=== PATIENT | male | born 1960 | race Caucasian/White ===

== ENCOUNTER 2019-02-27 21:37 | Inpatient (IN) | payer BC ==
[2019-02-27] MEDS ORDERED: Sodium Chloride 0.9% 10 ML Syringe FLUSH PRN (22:10)
[2019-02-27] MEDS ORDERED: Sodium Chloride 0.9% 1,000 ML IV STA (22:10)
[2019-02-27] MEDS ORDERED: Ondansetron 4 MG/2 ML SDV IVPUSH ONE (22:10)
[2019-02-27] MEDS ORDERED: HYDROmorphone 0.5 MG/0.5 ML Syringe IVPUSH ONE (22:11)
[2019-02-27] MEDS ORDERED: Diatrizoate Meglumine/Diatrizoate Sodium 37% 120 ML Bottle PO ONE ×2 (22:57→23:58)
[2019-02-27] MEDS ORDERED: Iopamidol 612 MG/ML 100 ML Bottle IVPUSH ONE ×2 (22:57→23:58)
--- NOTE | 2019-02-27 23:21 | EDM.PDOC ---
ED HPI GENERAL MEDICAL PROBLEM - General Chief Complaint: Abdominal Pain Stated Complaint: ABDOMINAL PAIN Time Seen by Provider: 02/27/19 21:55 Source of Information: Reports: Patient History Limitations: Reports: No Limitations - History of Present Illness INITIAL COMMENTS - FREE TEXT/NARRATIVE: The patient presents with lower abdominal pain. This started yesterday. Today it got worse and he came to be seen. He has no nausea, vomiting or diarrhea with it. He has no fever, chills, cough, congestion, runny nose, chest pain or shortness of breath. He had an appendectomy years ago. He still has his gallbladder. He did not eat any bad food and he was not around anyone who was sick. Onset: Gradual Duration: Day(s): Location: Reports: Abdomen Quality: Reports: Sharp Severity: Moderate Improves with: Reports: None Worsens with: Reports: None Associated Symptoms: Denies: Chest Pain, Cough, Fever/Chills, Headaches, Nausea/ Vomiting, Shortness of Breath Lower Abdomen Pain Score (Numeric/FACES): 7 - Related Data Allergies Allergy/AdvReac Type Severity Reaction Status Date / Time No Known Allergies Allergy Verified 02/27/19 21:52 Past Medical History HEENT History: Reports: Impaired Vision Other HEENT History: wears glasses Cardiovascular History: Reports: Afib Genitourinary History: Reports: Prostate Disorder Neurological History: Reports: Headaches, Chronic Oncologic (Cancer) History: Reports: Prostate - Past Surgical History HEENT Surgical History: Reports: Tonsillectomy GI Surgical History: Reports: Appendectomy Male Surgical History: Reports: Prostatectomy Social & Family History - Tobacco Use Smoking Status *Q: Never Smoker - Caffeine Use Caffeine Use: Reports: None - Recreational Drug Use Recreational Drug Use: No ED ROS GENERAL - Review of Systems Review Of Systems: See Below Constitutional: Reports: No Symptoms HEENT: Reports: No Symptoms Respiratory: Reports: No Symptoms Cardiovascular: Reports: No Symptoms Endocrine: Reports: No Symptoms GI/Abdominal: Reports: Abdominal Pain. Denies: Diarrhea, Nausea, Vomiting : Reports: No Symptoms Musculoskeletal: Reports: No Symptoms ED EXAM, GI/ABD - Physical Exam Exam: See Below Exam Limited By: No Limitations General Appearance: Alert, No Apparent Distress Ears: Normal External Exam Nose: Normal Inspection Head: Atraumatic, Normocephalic Neck: Normal Inspection Respiratory/Chest: No Respiratory Distress, Lungs Clear, Normal Breath Sounds Cardiovascular: Regular Rate, Rhythm, No Edema, No Murmur GI/Abdominal Exam: Soft, No Organomegaly, No Mass, Tender (Moderate pain to the mid abdomen) Back Exam: Normal Inspection Extremities: Normal Inspection Course - Vital Signs Last Recorded V/S: Last Vital Signs Temp 99.6 F 02/27/19 21:48 Pulse 60 02/27/19 21:48 Resp 20 02/27/19 21:48 BP 138/75 02/27/19 21:48 Pulse Ox 95 02/27/19 21:48 - Orders/Labs/Meds Orders: Active Orders 24 hr Category Date Time Status Peripheral IV Care [RC] . DIRECTED Care 02/27/19 22:11 Active Abdomen Pelvis w Cont [CT] Stat Exams 02/27/19 22:10 Taken Sodium Chloride 0.9% [Saline Flush] Med 02/27/19 22:10 Active 10 ml FLUSH ASDIRECTED PRN cefTRIAXone [Rocephin] 1 gm Med 02/28/19 00:39 Active Sodium Chloride 0.9% [Normal Saline] 100 ml IV ONETIME metroNIDAZOLE/Normal Saline [Flagyl 500 MG in NS 100 ML Med 02/28/19 00:39 Active ] 500 mg Premix Bag 1 bag IV ONETIME ED Antiemetic Medication Reflex [OM.PC] Stat Oth 02/27/19 22:10 Ordered Peripheral IV Insertion Adult [OM.PC] Stat Oth 02/27/19 22:10 Ordered Medication Orders Ceftriaxone Sodium 1 gm/ (Sodium Chloride) 100 mls @ 200 mls/hr IV ONETIME ONE Stop: 02/28/19 01:08 Last Admin: 02/28/19 00:47 Dose: 200 mls/hr Metronidazole 500 mg/ Premix 100 mls @ 100 mls/hr IV ONETIME ONE Stop: 02/28/19 01:38 Last Admin: 02/28/19 00:48 Dose: 100 mls/hr Sodium Chloride (Saline Flush) 10 ml FLUSH ASDIRECTED PRN PRN Reason: Keep Vein Open Last Admin: 02/27/19 22:23 Dose: 10 ml Labs: Laboratory Tests 02/27/19 02/27/19 02/27/19 Range/Units 22:19 22:19 23:48 WBC 10.40 H (4.23-9.07) K/mm3 RBC 4.75 (4.63-6.08) M/mm3 Hgb 14.9 (13.7-17.5) gm/dl Hct 45.1 (40.1-51.0) % MCV 94.9 H (79.0-92.2) fl MCH 31.4 (25.7-32.2) pg MCHC 33.0 (32.2-35.5) g/dl RDW Std Deviation 45.2 H (35.1-43.9) fL Plt Count 171 (163-337) K/mm3 MPV 10.3 (9.4-12.3) fl Neut % (Auto) 87.9 H (34.0-67.9) % Lymph % (Auto) 4.4 L (21.8-53.1) % [place] % (Auto) 7.1 (5.3-12.2) % Eos % (Auto) 0.1 L (0.8-7.0) Baso % (Auto) 0.2 (0.1-1.2) % Neut # (Auto) 9.14 H (1.78-5.38) K/mm3 Lymph # (Auto) 0.46 L (1.32-3.57) K/mm3 [place] # (Auto) 0.74 (0.30-0.82) K/mm3 Eos # (Auto) 0.01 L (0.04-0.54) K/mm3 Baso # (Auto) 0.02 (0.01-0.08) K/mm3 Manual Slide Review Abnormal smear Sodium 140 (136-145) mEq/L Potassium 4.4 (3.5-5.1) mEq/L Chloride 105 (98-107) mEq/L Carbon Dioxide 28 (21-32) mEq/L Anion Gap 11.4 (5-15) BUN 25 H (7-18) mg/dL Creatinine 1.2 (0.7-1.3) mg/dL Est Cr Clr Drug Dosing 67.59 mL/min Estimated GFR (MDRD) > 60 (>60) mL/min BUN/Creatinine Ratio 20.8 H (14-18) Glucose 139 H (74-106) mg/dL Calcium 9.4 (8.5-10.1) mg/dL Total Bilirubin 1.0 (0.2-1.0) mg/dL AST 11 L (15-37) U/L ALT 22 (16-63) U/L Alkaline Phosphatase 50 (46-116) U/L Total Protein 6.9 (6.4-8.2) g/dl Albumin 3.8 (3.4-5.0) g/dl Globulin 3.1 gm/dL Albumin/Globulin Ratio 1.2 (1-2) Lipase 107 (73-393) U/L Urine Color Yellow (Yellow) Urine Appearance Clear (Clear) Urine pH 6.0 (5.0-8.0) Ur Specific [place] > or = 1.030 (1.005-1.030) Urine Protein Negative (Negative) Urine Glucose (UA) Negative (Negative) Urine Ketones Negative (Negative) Urine Occult Blood Trace-lysed H (Negative) Urine Nitrite Negative (Negative) Urine Bilirubin Negative (Negative) Urine Urobilinogen 0.2 (0.2-1.0) Ur Leukocyte Esterase Negative (Negative) Urine RBC 0-5 (0-5) /hpf Urine WBC Not seen (0-5) /hpf Ur Squamous Epith Cells 0-5 (0-5) /hpf Amorphous Sediment Few H (NOT SEEN) /hpf Urine Bacteria Few (FEW) /hpf Urine Mucus Many H (FEW) /hpf Meds: Medications Generic Name Dose Route Start Last Admin Trade Name Freq PRN Reason Stop Dose Admin Ceftriaxone Sodium 1 gm/ 100 mls @ 200 mls/hr 02/28/19 00:39 02/28/19 00:47 Sodium Chloride IV 02/28/19 01:08 200 mls/hr ONETIME ONE Administration Metronidazole 500 mg/ Premix 100 mls @ 100 mls/hr 02/28/19 00:39 02/28/19 00: 48 IV 02/28/19 01:38 100 mls/hr ONETIME ONE Administration Sodium Chloride 10 ml 02/27/19 22:10 02/27/19 22:23 Saline Flush FLUSH 10 ml ASDIRECTED PRN Administration Keep Vein Open Discontinued Medications Generic Name Dose Route Start Last Admin Trade Name Freq PRN Reason Stop Dose Admin Diatrizoate Meglum/Diatrizoate Sod 90 ml 02/27/19 22:57 02/27/19 23:55 Gastrografin 37% PO 02/27/19 22:58 90 ml ONETIME ONE Administration Diatrizoate Meglum/Diatrizoate Sod 90 ml 02/27/19 23:58 Gastrografin 37% PO 02/27/19 23:59 ONETIME ONE Hydromorphone HCl 0.5 mg 02/27/19 22:11 02/27/19 22:22 Dilaudid IVPUSH 02/27/19 22:12 0.5 mg ONETIME ONE Administration Sodium Chloride 1,000 mls @ 1,000 mls/hr 02/27/19 22:10 02/27/19 22:21 Normal Saline IV 02/27/19 23:09 1,000 mls/hr .BOLUS STA Administration Iopamidol 100 ml 02/27/19 22:57 02/28/19 00:04 Isovue-300 (61%) IVPUSH 02/27/19 22:58 100 ml ONETIME ONE Administration Iopamidol 100 ml 02/27/19 23:58 Isovue-300 (61%) IVPUSH 02/27/19 23:59 ONETIME ONE Ondansetron HCl 4 mg 02/27/19 22:10 02/27/19 22:21 Zofran IVPUSH 02/27/19 22:11 4 mg ONETIME ONE Administration - Re-Assessments/Exams Free Text/Narrative Re-Assessment/Exam: 02/27/19 23:21 I ordered an IV NS 1L bolus, zofran 4mg IV, dilaudid 0.5mg IV, labs, UA and a CT of his abdomen and pelvis with IV and oral contrast. 02/28/19 00:49 His WBC was elevated at 10.4. His glucose was elevated at 139. His lipase was normal. His UA shows no UTI. His CT shows findings probably represent micro- perforated sigmoid diverticulitis. I called Dr Light the general surgeon transverse abdominal muscle surgeon and he says the patient does not need surgery. He just needs IV antibiotics. He recommended admission to the hospitalist service and he will consult. Departure - Departure Time of Disposition: 00:55 Disposition: Admitted As Inpatient 64 Condition: Fair Clinical Impression: Perforation of sigmoid colon due to diverticulitis - Discharge Information Referrals: PCP,None [Primary Care Provider] - Forms: ED Department Discharge - My Orders Last 24 Hours: My Active Orders 02/27/19 22:10 Abdomen Pelvis w Cont [CT] Stat Sodium Chloride 0.9% [Saline Flush] 10 ml FLUSH ASDIRECTED PRN ED Antiemetic Medication Reflex [OM.PC] Stat Peripheral IV Insertion Adult [OM.PC] Stat 02/27/19 22:11 Peripheral IV Care [RC] . DIRECTED 02/28/19 00:39 cefTRIAXone [Rocephin] 1 gm Sodium Chloride 0.9% [Normal Saline] 100 ml IV ONETIME metroNIDAZOLE/Normal Saline [Flagyl 500 MG in NS 100 ML] 500 mg Premix Bag 1 bag IV ONETIME - Assessment/Plan Last 24 Hours: My Active Orders 02/27/19 22:10 Abdomen Pelvis w Cont [CT] Stat Sodium Chloride 0.9% [Saline Flush] 10 ml FLUSH ASDIRECTED PRN ED Antiemetic Medication Reflex [OM.PC] Stat Peripheral IV Insertion Adult [OM.PC] Stat 02/27/19 22:11 Peripheral IV Care [RC] . DIRECTED 02/28/19 00:39 cefTRIAXone [Rocephin] 1 gm Sodium Chloride 0.9% [Normal Saline] 100 ml IV ONETIME metroNIDAZOLE/Normal Saline [Flagyl 500 MG in NS 100 ML] 500 mg Premix Bag 1 bag IV ONETIME
[2019-02-28] MEDS ORDERED: cefTRIAXone 1 GM in Sodium Chloride 0.9% 100 ML IV ONE (00:39)
[2019-02-28] MEDS ORDERED: metroNIDAZOLE/Normal Saline 500 MG in Premix Bag 1 BAG IV ONE (00:39)
[2019-02-28] MEDS ORDERED: HYDROmorphone 0.5 MG/0.5 ML Syringe IVPUSH ONE (00:54)
[2019-02-28] MEDS: HYDROmorphone 0.5 MG/0.5 ML Syringe IVPUSH PRN ×3 (04:26→22:28)
[2019-02-28] MEDS ORDERED: metroNIDAZOLE/Normal Saline 500 MG in Premix Bag 1 BAG IV SCH (08:30)
[2019-02-28] MEDS ORDERED: Piperacillin/Tazobactam 4.5 GM in Sodium Chloride 0.9% 100 ML IV ONE (09:00)
[2019-02-28] MEDS: Dextrose 5%-0.9% NaCl 1,000 ML IV SCH ×2 (09:31→20:27)
--- NOTE | 2019-02-28 09:48 | CT ---
CT abdomen and pelvis Technique: Multiple axial sections were obtained from above the dome of the diaphragm inferiorly through the pubic symphysis. Intravenous and oral contrast was utilized. Delayed images were also obtained through the pelvis. Comparison: Prior CT abdomen and pelvis study of 07/12/10. Findings: Mild inflammatory change is identified around a portion of the sigmoid colon. This occurs in an area of diverticulosis and findings are felt compatible with mild diverticulitis. Minimal amount of extraluminal air is seen compatible with perforated diverticula. No fluid collections of abscess are seen. Visualized lung bases show nothing acute. Liver contains no focal abnormality. Spleen appears within normal limits. Adrenal glands show no nodule. Cyst is seen within the lower right kidney measuring 7.4 cm. Kidneys otherwise appear within normal limits. Pancreas is within normal limits. Gallbladder contains no calcified gallstones. Aorta shows mild atherosclerotic calcification without aneurysm. No retroperitoneal adenopathy or mesenteric abnormalities are seen. Small fat-containing right sided lower abdominal wall hernia is noted. Hernia opening measures approximately 8 mm. No additional pelvic abnormality is seen. Delayed images show contrast within the ureters and within the bladder. Appendix not visualized with certainty. Bone window settings were reviewed which show diffuse degenerative change throughout the spine. Impression: 1. Findings compatible with mild diverticulitis involving the sigmoid colon. Very small amount of extraluminal air is seen compatible with perforated diverticula. No abscess is seen. 2. Fat-containing lateral abdominal wall hernia within the right pelvis. 3. Right renal cyst. Other findings which are felt to be incidental. Diagnostic code #3 I agree with preliminary report from [facility], finalized on 02/28/19, 1:24 AM Central Time
--- NOTE | 2019-02-28 13:11 | PCM.CONS ---
H&P History of Present Illness - General Date of Service: 02/28/19 Admit Problem/Dx: Admission Diagnosis/Problem Admission Diagnosis/Problem Diverticulitis of colon with perforation Source of Information: Patient History Limitations: Reports: No Limitations - History of Present Illness Initial Comments - Free Text/Narative: The patient started having abdominal pain 2 days ago. Initially it was moderate , left sided, with some cramps and diarrhea. The pain was 4/10. But yesterday the pain got much worse to 7/10 and cramps. He left work and presented to the ED where CT a/p revealed diverticulitis with microperforation but without abscess. I was asked to evaluate the patient and I recommended admission for antibiotics. The patient has never had a colonoscopy, no family history of bowel cancers or IBD.Patient is on Eliquis for arrhythmia s/p cardioversion 2 years ago. Onset of Symptoms: Reports: Gradual Duration of Symptoms: Reports: Day(s):, Improving Location: Reports: Abdomen Quality: Reports: Sharp Severity: Severe Improves with: Reports: None Worsens with: Reports: None Associated Symptoms: Reports: Nausea/Vomiting Lower Abdomen Pain Score (Numeric/FACES): 5 - Related Data Allergies/Adverse Reactions: Allergies Allergy/AdvReac Type Severity Reaction Status Date / Time No Known Allergies Allergy Verified 02/27/19 21:52 Home Medications: Home Meds Amiodarone [Cordarone] 200 mg PO DAILY 02/28/19 [History] Apixaban [Eliquis] 5 mg PO BID 02/28/19 [History] Furosemide 20 mg PO DAILY 02/28/19 [History] Losartan [Cozaar] 25 mg PO DAILY 02/28/19 [History] Metoprolol Succinate 50 mg PO BID 02/28/19 [History] Past Medical History HEENT History: Reports: Impaired Vision Other HEENT History: wears glasses Cardiovascular History: Reports: Afib Gastrointestinal History: Reports: Diverticulosis, Other (See Below) Other Gastrointestinal History: hernia Genitourinary History: Reports: Prostate Disorder Musculoskeletal History: Reports: Other (See Below) Other Musculoskeletal History: left knee bone on bone Neurological History: Reports: Headaches, Chronic Oncologic (Cancer) History: Reports: Prostate Dermatologic History: Reports: Other (See Below) Other Dermatologic History: rash on LLQ for 5 years comes and goes - Infectious Disease History Infectious Disease History: Reports: Chicken Pox, Measles - Past Surgical History HEENT Surgical History: Reports: Tonsillectomy Cardiovascular Surgical History: Reports: None GI Surgical History: Reports: Appendectomy, Hernia Repair/Other Male Surgical History: Reports: Prostatectomy Neurological Surgical History: Reports: None Musculoskeletal Surgical History: Reports: None Oncologic Surgical History: Reports: None Dermatological Surgical History: Reports: None Social & Family History - Family History Family Medical History: Noncontributory - Tobacco Use Smoking Status *Q: Never Smoker Second Hand Smoke Exposure: No - Caffeine Use Caffeine Use: Reports: Soda - Alcohol Use Days Per Week of Alcohol Use: 0 - Recreational Drug Use Recreational Drug Use: No H&P Review of Systems - Review of Systems: Review Of Systems: See Below General: Reports: No Symptoms HEENT: Reports: No Symptoms Pulmonary: Reports: No Symptoms Cardiovascular: Reports: No Symptoms Gastrointestinal: Reports: Abdominal Pain Genitourinary: Reports: No Symptoms Musculoskeletal: Reports: No Symptoms Skin: Reports: No Symptoms Psychiatric: Reports: No Symptoms Neurological: Reports: No Symptoms Hematologic/Lymphatic: Reports: No Symptoms Exam - Exam Exam: See Below - Vital Signs Vital Signs: Last Vital Signs Temp 99.0 F 02/28/19 03:59 Pulse 59 L 02/28/19 03:59 Resp 22 H 02/28/19 03:59 BP 118/69 02/28/19 03:59 Pulse Ox 91 L 02/28/19 03:59 Weight: 124.511 kg - Exam General: Alert, Oriented, Cooperative, Mild Distress HEENT: Conjunctiva Clear Neck: Supple, Trachea Midline Lungs: Clear to Auscultation, Normal Respiratory Effort Cardiovascular: Regular Rate, Regular Rhythm, Normal S1, Normal S2 GI/Abdominal Exam: Soft, No Organomegaly, No Mass, Distended (mildly), Tender ( LLQ) - Patient Data Lab Results Last 24 hrs: Laboratory Results - last 24 hr 02/27/19 02/27/19 02/27/19 Range/Units 22:19 22:19 23:48 WBC 10.40 H (4.23-9.07) K/mm3 RBC 4.75 (4.63-6.08) M/mm3 Hgb 14.9 (13.7-17.5) gm/dl Hct 45.1 (40.1-51.0) % MCV 94.9 H (79.0-92.2) fl MCH 31.4 (25.7-32.2) pg MCHC 33.0 (32.2-35.5) g/dl RDW Std Deviation 45.2 H (35.1-43.9) fL Plt Count 171 (163-337) K/mm3 MPV 10.3 (9.4-12.3) fl Neut % (Auto) 87.9 H (34.0-67.9) % Lymph % (Auto) 4.4 L (21.8-53.1) % [place] % (Auto) 7.1 (5.3-12.2) % Eos % (Auto) 0.1 L (0.8-7.0) Baso % (Auto) 0.2 (0.1-1.2) % Neut # (Auto) 9.14 H (1.78-5.38) K/mm3 Lymph # (Auto) 0.46 L (1.32-3.57) K/mm3 [place] # (Auto) 0.74 (0.30-0.82) K/mm3 Eos # (Auto) 0.01 L (0.04-0.54) K/mm3 Baso # (Auto) 0.02 (0.01-0.08) K/mm3 Manual Slide Review Abnormal smear Sodium 140 (136-145) mEq/L Potassium 4.4 (3.5-5.1) mEq/L Chloride 105 (98-107) mEq/L Carbon Dioxide 28 (21-32) mEq/L Anion Gap 11.4 (5-15) BUN 25 H (7-18) mg/dL Creatinine 1.2 (0.7-1.3) mg/dL Est Cr Clr Drug Dosing 67.59 mL/min Estimated GFR (MDRD) > 60 (>60) mL/min BUN/Creatinine Ratio 20.8 H (14-18) Glucose 139 H (74-106) mg/dL Calcium 9.4 (8.5-10.1) mg/dL Total Bilirubin 1.0 (0.2-1.0) mg/dL AST 11 L (15-37) U/L ALT 22 (16-63) U/L Alkaline Phosphatase 50 (46-116) U/L Total Protein 6.9 (6.4-8.2) g/dl Albumin 3.8 (3.4-5.0) g/dl Globulin 3.1 gm/dL Albumin/Globulin Ratio 1.2 (1-2) Lipase 107 (73-393) U/L Urine Color Yellow (Yellow) Urine Appearance Clear (Clear) Urine pH 6.0 (5.0-8.0) Ur Specific [place] > or = 1.030 (1.005-1.030) Urine Protein Negative (Negative) Urine Glucose (UA) Negative (Negative) Urine Ketones Negative (Negative) Urine Occult Blood Trace-lysed H (Negative) Urine Nitrite Negative (Negative) Urine Bilirubin Negative (Negative) Urine Urobilinogen 0.2 (0.2-1.0) Ur Leukocyte Esterase Negative (Negative) Urine RBC 0-5 (0-5) /hpf Urine WBC Not seen (0-5) /hpf Ur Squamous Epith Cells 0-5 (0-5) /hpf Amorphous Sediment Few H (NOT SEEN) /hpf Urine Bacteria Few (FEW) /hpf Urine Mucus Many H (FEW) /hpf Result Diagrams: 02/27/19 22:19 02/27/19 22:19 Consult PN Assessment/Plan Procedures: Procedures BREATHING CAPACITY TEST (09/27/18) CO/[place] DIFFUSE CAPACITY (09/27/18) MRI BRAIN STEM W/O & W/DYE (07/29/13) Problem List Initiated/Reviewed/Updated: No Plan: Patient has diverticulitis. - Plan is bowel rest and IV antibiotics until pain subsides. - NPO with ice chips, IV Zosyn, ambulate as tolerated, IVF d5 .45 at 100cc/hr - Hold Eliquis at this time - DO Therapeutic Lovenox - Serial abdominal examinations
[2019-02-28] MEDS: Piperacillin/Tazobactam 4.5 GM in Sodium Chloride 0.9% 100 ML IV SCH (16:02)
[2019-02-28] MEDS ORDERED: Acetaminophen 325 MG/10.15 ML ML PO PRN (16:07)
[2019-02-28] MEDS: Acetaminophen 325 MG Tab PO PRN (16:18)
--- NOTE | 2019-02-28 17:28 | PCM.HP.2 ---
H&P History of Present Illness - General Date of Service: 02/28/19 Admit Problem/Dx: Admission Diagnosis/Problem Admission Diagnosis/Problem Diverticulitis of colon with perforation - History of Present Illness Initial Comments - Free Text/Narative: 58-year-old male that started having abdominal pain approximately 2 days. He developed pain in the lower abdomen with cramps and diarrhea. He denies any fever or chills. Denies any chest pain or shortness of breath. He's had no hematochezia, nausea, or vomiting. When he presented to the emergency room a CT scan revealed diverticulitis with microperforation, but without abscess. Surgery was consultative and recommended starting antibiotics and admission for close follow-up. patient is on Eliquis secondary to history of atrial fibrillation. He had cardioversion and went into normal sinus rhythm. He has a history of congestive heart failure with reduced ejection fraction several years ago that has recovered with medical management. Lower Abdomen Pain Score (Numeric/FACES): 5 - Related Data Allergies/Adverse Reactions: Allergies Allergy/AdvReac Type Severity Reaction Status Date / Time No Known Allergies Allergy Verified 02/27/19 21:52 Home Medications: Home Meds Amiodarone [Cordarone] 200 mg PO DAILY 02/28/19 [History] Apixaban [Eliquis] 5 mg PO BID 02/28/19 [History] Furosemide 20 mg PO DAILY 02/28/19 [History] Losartan [Cozaar] 25 mg PO DAILY 02/28/19 [History] Metoprolol Succinate 50 mg PO BID 02/28/19 [History] Past Medical History HEENT History: Reports: Impaired Vision Other HEENT History: wears glasses Cardiovascular History: Reports: Afib Gastrointestinal History: Reports: Diverticulosis, Other (See Below) Other Gastrointestinal History: hernia Genitourinary History: Reports: Prostate Disorder Musculoskeletal History: Reports: Other (See Below) Other Musculoskeletal History: left knee bone on bone Neurological History: Reports: Headaches, Chronic Oncologic (Cancer) History: Reports: Prostate Dermatologic History: Reports: Other (See Below) Other Dermatologic History: rash on LLQ for 5 years comes and goes - Infectious Disease History Infectious Disease History: Reports: Chicken Pox, Measles - Past Surgical History HEENT Surgical History: Reports: Tonsillectomy Cardiovascular Surgical History: Reports: None GI Surgical History: Reports: Appendectomy, Hernia Repair/Other Male Surgical History: Reports: Prostatectomy Neurological Surgical History: Reports: None Musculoskeletal Surgical History: Reports: None Oncologic Surgical History: Reports: None Dermatological Surgical History: Reports: None Social & Family History - Family History Family Medical History: Noncontributory - Tobacco Use Smoking Status *Q: Never Smoker Second Hand Smoke Exposure: No - Caffeine Use Caffeine Use: Reports: Soda - Alcohol Use Days Per Week of Alcohol Use: 0 - Recreational Drug Use Recreational Drug Use: No H&P Review of Systems - Review of Systems: Review Of Systems: ROS reveals no pertinent complaints other than HPI. Exam - Exam Exam: See Below - Vital Signs Vital Signs: Last Vital Signs Temp 98.6 F 02/28/19 15:16 Pulse 59 L 02/28/19 15:16 Resp 18 02/28/19 15:16 BP 114/59 L 02/28/19 15:16 Pulse Ox 94 L 02/28/19 15:16 Weight: 274 lb 8 oz - Exam Quality Assessment: No: Supplemental Oxygen General: Alert, Oriented, 4 HEENT: Conjunctiva Clear, Hearing Intact, Mucosa Moist & [place], Pupils Equal Neck: Supple, Trachea Midline, 2 Lungs: Clear to Auscultation, Normal Respiratory Effort Cardiovascular: Regular Rate, Regular Rhythm GI/Abdominal Exam: Soft, Tender (left lower quadrant tenderness without guarding or rebound.). No: Normal Bowel Sounds (decreased bowel sounds) Back Exam: Normal Inspection Extremities: Normal Inspection, Normal Range of Motion, Non-Tender, No Pedal Edema, Normal Capillary Refill Neurological: Cranial Nerves Intact Neuro Extensive - Mental Status: Alert, Oriented x3 Psychiatric: Alert, Normal Affect, Normal Mood - Patient Data Lab Results Last 24 hrs: Laboratory Results - last 24 hr 02/27/19 02/27/19 02/27/19 Range/Units 22:19 22:19 23:48 WBC 10.40 H (4.23-9.07) K/mm3 RBC 4.75 (4.63-6.08) M/mm3 Hgb 14.9 (13.7-17.5) gm/dl Hct 45.1 (40.1-51.0) % MCV 94.9 H (79.0-92.2) fl MCH 31.4 (25.7-32.2) pg MCHC 33.0 (32.2-35.5) g/dl RDW Std Deviation 45.2 H (35.1-43.9) fL Plt Count 171 (163-337) K/mm3 MPV 10.3 (9.4-12.3) fl Neut % (Auto) 87.9 H (34.0-67.9) % Lymph % (Auto) 4.4 L (21.8-53.1) % [place] % (Auto) 7.1 (5.3-12.2) % Eos % (Auto) 0.1 L (0.8-7.0) Baso % (Auto) 0.2 (0.1-1.2) % Neut # (Auto) 9.14 H (1.78-5.38) K/mm3 Lymph # (Auto) 0.46 L (1.32-3.57) K/mm3 [place] # (Auto) 0.74 (0.30-0.82) K/mm3 Eos # (Auto) 0.01 L (0.04-0.54) K/mm3 Baso # (Auto) 0.02 (0.01-0.08) K/mm3 Manual Slide Review Abnormal smear Sodium 140 (136-145) mEq/L Potassium 4.4 (3.5-5.1) mEq/L Chloride 105 (98-107) mEq/L Carbon Dioxide 28 (21-32) mEq/L Anion Gap 11.4 (5-15) BUN 25 H (7-18) mg/dL Creatinine 1.2 (0.7-1.3) mg/dL Est Cr Clr Drug Dosing 67.59 mL/min Estimated GFR (MDRD) > 60 (>60) mL/min BUN/Creatinine Ratio 20.8 H (14-18) Glucose 139 H (74-106) mg/dL Calcium 9.4 (8.5-10.1) mg/dL Total Bilirubin 1.0 (0.2-1.0) mg/dL AST 11 L (15-37) U/L ALT 22 (16-63) U/L Alkaline Phosphatase 50 (46-116) U/L Total Protein 6.9 (6.4-8.2) g/dl Albumin 3.8 (3.4-5.0) g/dl Globulin 3.1 gm/dL Albumin/Globulin Ratio 1.2 (1-2) Lipase 107 (73-393) U/L Urine Color Yellow (Yellow) Urine Appearance Clear (Clear) Urine pH 6.0 (5.0-8.0) Ur Specific [place] > or = 1.030 (1.005-1.030) Urine Protein Negative (Negative) Urine Glucose (UA) Negative (Negative) Urine Ketones Negative (Negative) Urine Occult Blood Trace-lysed H (Negative) Urine Nitrite Negative (Negative) Urine Bilirubin Negative (Negative) Urine Urobilinogen 0.2 (0.2-1.0) Ur Leukocyte Esterase Negative (Negative) Urine RBC 0-5 (0-5) /hpf Urine WBC Not seen (0-5) /hpf Ur Squamous Epith Cells 0-5 (0-5) /hpf Amorphous Sediment Few H (NOT SEEN) /hpf Urine Bacteria Few (FEW) /hpf Urine Mucus Many H (FEW) /hpf Result Diagrams: 02/27/19 22:19 02/27/19 22:19 Problem List Initiated/Reviewed/Updated: Yes Orders Last 24hrs: Active Orders 24 hr Category Date Time Status Patient Status [ADT] Routine ADT 02/28/19 01:30 Active Antiembolic Devices [RC] PER UNIT ROUTINE Care 02/28/19 13:01 Active Bedrest Bathroom Privileges [RC] DAILY Care 02/28/19 04:22 Active Notify Provider Consults [RC] DAILY Care 02/28/19 01:28 Active Peripheral IV Care [RC] Q2HR Care 02/27/19 22:11 Active Consult to Physician [CONS] Routine Cons 02/28/19 01:27 Active NPO [Nothing Per Oral Diet] [DIET] Diet 02/28/19 Lunch Active Acetaminophen [Tylenol] Med 02/28/19 16:15 Active 975 mg PO Q6H PRN Amiodarone [Cordarone] Med 03/01/19 09:00 Active 200 mg PO DAILY Dextrose 5%-0.9% NaCl [Dextrose 5%-Normal Saline] 1,000 Med 02/28/19 08:45 Active ml IV ASDIRECTED Furosemide [Lasix] Med 03/01/19 09:00 Active 20 mg PO DAILY HYDROmorphone [Dilaudid] Med 02/28/19 04:15 Active 0.5 mg IVPUSH Q2H PRN Losartan [Cozaar] Med 03/01/19 09:00 Active 25 mg PO DAILY Metoprolol Succinate [Toprol XL] Med 02/28/19 21:00 Active 50 mg PO BID Ondansetron [Zofran] Med 02/28/19 04:16 Active 4 mg IVPUSH Q6H PRN Piperacillin/Tazobactam [Piperacil-Tazobact] 4.5 gm Med 02/28/19 17:00 Active Sodium Chloride 0.9% [Normal Saline] 100 ml IV Q8H Sodium Chloride 0.9% [Saline Flush] Med 02/27/19 22:10 Active 10 ml FLUSH ASDIRECTED PRN ED Antiemetic Medication Reflex [OM.PC] Stat Oth 02/27/19 22:10 Ordered Peripheral IV Insertion Adult [OM.PC] Stat Oth 02/27/19 22:10 Ordered ADOLFO Hose [Antiembolic Hose] [OM.PC] Routine Oth 02/28/19 13:01 Ordered Code Status [Resuscitation Status] Routine Resus Stat 02/28/19 04:39 Ordered Medication Orders Acetaminophen (Tylenol) 975 mg PO Q6H PRN PRN Reason: Pain (moderate 4-6) Last Admin: 02/28/19 16:18 Dose: 975 mg Amiodarone HCl (Cordarone) 200 mg PO DAILY [facility] Furosemide (Lasix) 20 mg PO DAILY [facility] Hydromorphone HCl (Dilaudid) 0.5 mg IVPUSH Q2H PRN PRN Reason: Pain Last Admin: 02/28/19 09:29 Dose: 0.5 mg Admin: 02/28/19 04:26 Dose: 0.5 mg Dextrose/Sodium Chloride (Dextrose 5%-Normal Saline) 1,000 mls @ 100 mls/hr IV ASDIRECTED RADHA Last Admin: 02/28/19 09:31 Dose: 100 mls/hr Piperacillin Sod/Tazobactam (Sod 4.5 gm/ Sodium Chloride) 100 mls @ 25 mls/hr IV Q8H [facility] Last Admin: 02/28/19 16:02 Dose: 25 mls/hr Losartan Potassium (Cozaar) 25 mg PO DAILY [facility] Metoprolol Succinate (Toprol Xl) 50 mg PO BID [facility] Ondansetron HCl (Zofran) 4 mg IVPUSH Q6H PRN PRN Reason: Nausea Sodium Chloride (Saline Flush) 10 ml FLUSH ASDIRECTED PRN PRN Reason: Keep Vein Open Last Admin: 02/27/19 22:23 Dose: 10 ml Assessment/Plan Comment:: Assessment * Diverticulitis with microperforation found on CT * History of atrial fibrillation on Eliquis for anticoagulation * History of congestive heart failure Plan * Admit to med surge on telemetry for close observation * Consult surgery * Nothing by mouth * D5NS at 100 mL per hour * Zosyn * CBC, CMP, magnesium daily * Lovenox for anticoagulation * Reconciled home meds. Hold Eliquis secondary to potential for surgical intervention. * CODE STATUS: Full code * length of stay 3-4 days - Mortality Measure Prognosis:: Good
[2019-02-28] MEDS: Enoxaparin 120 MG/0.8 ML Syringe SUBCUT SCH (18:25)
[2019-02-28] MEDS: Metoprolol Succinate 50 MG Tab.ER PO SCH (20:43)
[2019-02-28] MEDS ORDERED: cefTRIAXone 1 GM in Sodium Chloride 0.9% 100 ML IV SCH (23:59)
[2019-03-01] MEDS: Piperacillin/Tazobactam 4.5 GM in Sodium Chloride 0.9% 100 ML IV SCH ×3 (01:00→16:58)
[2019-03-01] MEDS: Acetaminophen 325 MG Tab PO PRN ×2 (01:02→14:47)
[2019-03-01] MEDS: Dextrose 5%-0.9% NaCl 1,000 ML IV SCH (05:19)
[2019-03-01] MEDS: Enoxaparin 120 MG/0.8 ML Syringe SUBCUT SCH ×2 (06:52→17:03)
[2019-03-01] MEDS: Losartan 25 MG Tab PO SCH ×2 (09:47→10:17)
[2019-03-01] MEDS: Furosemide 20 MG Tab PO SCH (09:48)
[2019-03-01] MEDS: Amiodarone 200 MG Tab PO SCH (09:48)
[2019-03-01] MEDS ORDERED: Sodium Chloride 0.9% 500 ML IV ONE (10:16)
[2019-03-01] MEDS: Metoprolol Succinate 50 MG Tab.ER PO SCH ×2 (10:18→20:35)
--- NOTE | 2019-03-01 10:35 | PCM.PN ---
- General Info Date of Service: 03/01/19 Admission Dx/Problem (Free Text): Admission Diagnosis/Problem Admission Diagnosis/Problem Diverticulitis of colon with perforation Subjective Update: Brooke complains of malaise, mild headache, and flu like symptoms. Abdominal pain improve. Less crampy. + several loose stools. He states he has had decrease UOP. Nursing confirms. Functional Status: Reports: Pain Controlled - Review of Systems General: Reports: Malaise HEENT: Reports: Other (headache) Pulmonary: Reports: No Symptoms Cardiovascular: Reports: No Symptoms Gastrointestinal: Reports: Abdominal Pain, Diarrhea - Patient Data Vitals - Most Recent: Last Vital Signs Temp 98.2 F 03/01/19 01:06 Pulse 61 03/01/19 01:06 Resp 18 03/01/19 01:06 BP 106/65 03/01/19 01:06 Pulse Ox 90 L 03/01/19 01:06 Weight - Most Recent: 273 lb 1.6 oz I&O - Last 24 Hours: Intake & Output 02/28/19 03/01/19 03/01/19 22:59 06:59 14:59 Intake Total 400 100 Output Total 250 500 Balance 150 -400 Lab Results Last 24 Hours: Laboratory Results - last 24 hr 03/01/19 03/01/19 Range/Units 08:30 08:30 WBC 7.65 (4.23-9.07) K/mm3 RBC 4.49 L (4.63-6.08) M/mm3 Hgb 14.1 (13.7-17.5) gm/dl Hct 43.4 (40.1-51.0) % MCV 96.7 H (79.0-92.2) fl MCH 31.4 (25.7-32.2) pg MCHC 32.5 (32.2-35.5) g/dl RDW Std Deviation 46.4 H (35.1-43.9) fL Plt Count 136 L (163-337) K/mm3 MPV 10.7 (9.4-12.3) fl Neut % (Auto) 84.5 H (34.0-67.9) % Lymph % (Auto) 7.8 L (21.8-53.1) % [place] % (Auto) 6.9 (5.3-12.2) % Eos % (Auto) 0.4 L (0.8-7.0) Baso % (Auto) 0.1 (0.1-1.2) % Neut # (Auto) 6.46 H (1.78-5.38) K/mm3 Lymph # (Auto) 0.60 L (1.32-3.57) K/mm3 [place] # (Auto) 0.53 (0.30-0.82) K/mm3 Eos # (Auto) 0.03 L (0.04-0.54) K/mm3 Baso # (Auto) 0.01 (0.01-0.08) K/mm3 Manual Slide Review Abnormal smear Sodium 145 (136-145) mEq/L Potassium 3.9 (3.5-5.1) mEq/L Chloride 110 H (98-107) mEq/L Carbon Dioxide 25 (21-32) mEq/L Anion Gap 13.9 (5-15) BUN 9 (7-18) mg/dL Creatinine 1.0 (0.7-1.3) mg/dL Est Cr Clr Drug Dosing 81.11 mL/min Estimated GFR (MDRD) > 60 (>60) mL/min BUN/Creatinine Ratio 9.0 L (14-18) Glucose 131 H (74-106) mg/dL Calcium 8.8 (8.5-10.1) mg/dL Magnesium 1.9 (1.8-2.4) mg/dl Total Bilirubin 1.1 H (0.2-1.0) mg/dL AST 6 L (15-37) U/L ALT 14 L (16-63) U/L Alkaline Phosphatase 44 L (46-116) U/L Total Protein 6.6 (6.4-8.2) g/dl Albumin 3.1 L (3.4-5.0) g/dl Globulin 3.5 gm/dL Albumin/Globulin Ratio 0.9 L (1-2) Med Orders - Current: Current Medications Acetaminophen (Tylenol) 975 mg PO Q6H PRN PRN Reason: Pain (moderate 4-6) Last Admin: 03/01/19 01:02 Dose: 975 mg Amiodarone HCl (Cordarone) 200 mg PO DAILY [facility] Last Admin: 03/01/19 09:48 Dose: 200 mg Enoxaparin Sodium (Lovenox) 120 mg SUBCUT Q12H [facility] Last Admin: 03/01/19 06:52 Dose: 120 mg Furosemide (Lasix) 20 mg PO DAILY [facility] Last Admin: 03/01/19 09:48 Dose: 20 mg Hydromorphone HCl (Dilaudid) 0.5 mg IVPUSH Q2H PRN PRN Reason: Pain Last Admin: 02/28/19 22:28 Dose: 0.5 mg Dextrose/Sodium Chloride (Dextrose 5%-Normal Saline) 1,000 mls @ 100 mls/hr IV ASDIRECTED [facility] Last Admin: 03/01/19 05:19 Dose: 100 mls/hr Piperacillin Sod/Tazobactam (Sod 4.5 gm/ Sodium Chloride) 100 mls @ 25 mls/hr IV Q8H [facility] Last Admin: 03/01/19 09:48 Dose: 25 mls/hr Sodium Chloride (Normal Saline) 500 mls @ 999 mls/hr IV .BOLUS ONE Stop: 03/01/19 10:46 Losartan Potassium (Cozaar) 25 mg PO DAILY [facility] Last Admin: 03/01/19 10:17 Dose: Not Given Metoprolol Succinate (Toprol Xl) 50 mg PO BEDTIME [facility] Ondansetron HCl (Zofran) 4 mg IVPUSH Q6H PRN PRN Reason: Nausea Sodium Chloride (Saline Flush) 10 ml FLUSH ASDIRECTED PRN PRN Reason: Keep Vein Open Last Admin: 02/27/19 22:23 Dose: 10 ml Discontinued Medications Acetaminophen (Tylenol) 1,000 mg PO Q6HR PRN PRN Reason: Pain (moderate 4-6) Diatrizoate Meglum/Diatrizoate Sod (Gastrografin 37%) 90 ml PO ONETIME ONE Stop: 02/27/19 22:58 Last Admin: 02/27/19 23:55 Dose: 90 ml Diatrizoate Meglum/Diatrizoate Sod (Gastrografin 37%) 90 ml PO ONETIME ONE Stop: 02/27/19 23:59 Last Admin: 02/28/19 09:25 Dose: Not Given Hydromorphone HCl (Dilaudid) 0.5 mg IVPUSH ONETIME ONE Stop: 02/27/19 22:12 Last Admin: 02/27/19 22:22 Dose: 0.5 mg Hydromorphone HCl (Dilaudid) 0.5 mg IVPUSH ONETIME ONE Stop: 02/28/19 00:55 Last Admin: 02/28/19 01:03 Dose: 0.5 mg Sodium Chloride (Normal Saline) 1,000 mls @ 1,000 mls/hr IV .BOLUS STA Stop: 02/27/19 23:09 Last Admin: 02/27/19 22:21 Dose: 1,000 mls/hr Ceftriaxone Sodium 1 gm/ (Sodium Chloride) 100 mls @ 200 mls/hr IV ONETIME ONE Stop: 02/28/19 01:08 Last Admin: 02/28/19 00:47 Dose: 200 mls/hr Metronidazole 500 mg/ Premix 100 mls @ 100 mls/hr IV ONETIME ONE Stop: 02/28/19 01:38 Last Admin: 02/28/19 00:48 Dose: 100 mls/hr Ceftriaxone Sodium 1 gm/ (Sodium Chloride) 100 mls @ 200 mls/hr IV Q24H [facility] Metronidazole 500 mg/ Premix 100 mls @ 100 mls/hr IV Q8H [facility] Piperacillin Sod/Tazobactam (Sod 4.5 gm/ Sodium Chloride) 100 mls @ 200 mls/hr IV ONETIME ONE Stop: 02/28/19 09:29 Last Admin: 02/28/19 09:32 Dose: 200 mls/hr Iopamidol (Isovue-300 (61%)) 100 ml IVPUSH ONETIME ONE Stop: 02/27/19 22:58 Last Admin: 02/28/19 00:04 Dose: 100 ml Iopamidol (Isovue-300 (61%)) 100 ml IVPUSH ONETIME ONE Stop: 02/27/19 23:59 Last Admin: 02/28/19 09:25 Dose: Not Given Metoprolol Succinate (Toprol Xl) 50 mg PO BID [facility] Last Admin: 03/01/19 10:18 Dose: Not Given Ondansetron HCl (Zofran) 4 mg IVPUSH ONETIME ONE Stop: 02/27/19 22:11 Last Admin: 02/27/19 22:21 Dose: 4 mg - Exam General: Alert, Oriented HEENT: Pupils Equal Neck: Supple Lungs: Clear to Auscultation, Normal Respiratory Effort Cardiovascular: Regular Rate, Regular Rhythm GI/Abdominal Exam: Normal Bowel Sounds, Soft, No Distention, Tender (left upper quadrant) - Problem List Review Problem List Initiated/Reviewed/Updated: Yes - My Orders Last 24 Hours: My Active Orders 02/28/19 13:01 Antiembolic Devices [RC] BID ADOLFO Hose [Antiembolic Hose] [OM.PC] Routine 02/28/19 16:15 Acetaminophen [Tylenol] 975 mg PO Q6H PRN 02/28/19 17:00 Piperacillin/Tazobactam [Piperacil-Tazobact] 4.5 gm Sodium Chloride 0.9% [ Normal Saline] 100 ml IV Q8H 02/28/19 18:00 Enoxaparin [Lovenox] 120 mg SUBCUT Q12H 03/01/19 09:00 Amiodarone [Cordarone] 200 mg PO DAILY Furosemide [Lasix] 20 mg PO DAILY Losartan [Cozaar] 25 mg PO DAILY 03/01/19 10:16 Sodium Chloride 0.9% [Normal Saline] 500 ml IV .BOLUS 03/01/19 21:00 Metoprolol Succinate [Toprol XL] 50 mg PO BEDTIME 03/02/19 05:11 CBC WITH AUTO DIFF [HEME] AM CMP [COMPREHENSIVE METABOLIC PN,CMP] [CHEM] AM MAGNESIUM [CHEM] AM 03/03/19 05:11 CBC WITH AUTO DIFF [HEME] AM CMP [COMPREHENSIVE METABOLIC PN,CMP] [CHEM] AM MAGNESIUM [CHEM] AM 03/04/19 05:11 CBC WITH AUTO DIFF [HEME] AM CMP [COMPREHENSIVE METABOLIC PN,CMP] [CHEM] AM MAGNESIUM [CHEM] AM 03/05/19 05:11 CBC WITH AUTO DIFF [HEME] AM CMP [COMPREHENSIVE METABOLIC PN,CMP] [CHEM] AM MAGNESIUM [CHEM] AM - Plan Plan:: Assessment * Diverticulitis with microperforation found on CT * History of atrial fibrillation on Eliquis for anticoagulation * History of congestive heart failure * flu like symptoms - maybe due to systemic symptoms 2/2 diverticulitis and antibiotics. * Decreased UOP. * Bradycardia and blood pressure on the low side Plan * Admit to med [facility] on telemetry for close observation * Influenza screen. * 500 ml bolus NS. Repeat if UOP doesn't increase. * Nothing by mouth - advance diet per Dr. Light * D5NS at 100 mL per hour * Zosyn * Hold losartan and morning metoprolol XR. * CBC, CMP, magnesium daily * Lovenox for anticoagulation * Reconciled home meds. Hold Eliquis secondary to potential for surgical intervention. * CODE STATUS: Full code * length of stay 3-4 days
[2019-03-01] MEDS: HYDROmorphone 0.5 MG/0.5 ML Syringe IVPUSH PRN ×3 (12:09→23:17)
[2019-03-01] MEDS: Ondansetron 4 MG/2 ML SDV IVPUSH PRN (12:19)
[2019-03-01] MEDS: Dextrose 5%-0.45% NaCl 1,000 ML IV SCH (16:57)
[2019-03-02] MEDS: Dextrose 5%-0.45% NaCl 1,000 ML IV SCH ×3 (00:46→17:37)
[2019-03-02] MEDS: Piperacillin/Tazobactam 4.5 GM in Sodium Chloride 0.9% 100 ML IV SCH ×3 (00:48→17:30)
[2019-03-02] MEDS: Enoxaparin 120 MG/0.8 ML Syringe SUBCUT SCH ×2 (05:19→17:32)
[2019-03-02] MEDS: Furosemide 20 MG Tab PO SCH (08:32)
[2019-03-02] MEDS: Losartan 25 MG Tab PO SCH (08:32)
[2019-03-02] MEDS: Amiodarone 200 MG Tab PO SCH (08:33)
[2019-03-02] MEDS: Acetaminophen 325 MG Tab PO PRN ×2 (08:40→17:38)
[2019-03-02] MEDS ORDERED: Magnesium Sulfate/Water 2 GM in Premix Bag 1 BAG IV ONE (09:00)
[2019-03-02] MEDS ORDERED: Furosemide 20 MG/2 ML VIAL IVPUSH ONE (09:39)
--- NOTE | 2019-03-02 10:09 | PCM.CONSN ---
- General Info Date of Service: 03/02/19 Admission Dx/Problem (Free Text): Admission Diagnosis/Problem Admission Diagnosis/Problem Diverticulitis of colon with perforation Subjective Update: Patient had one episode of emesis overnight with about 600 cc out of bilious tinged fluid. Had some belching. Reports that his abdominal pain is much better than at presentation. UOP has been about 30-35cc/hr. He is on Lasix at home and had been getting it here orally. Last opioid pain med was yesterday at 11 PM. Passing minimal flatus and minimal BMs Functional Status: Reports: Pain Controlled - Review of Systems General: Reports: No Symptoms HEENT: Reports: No Symptoms Pulmonary: Reports: No Symptoms Cardiovascular: Reports: No Symptoms Gastrointestinal: Reports: Abdominal Pain, Vomiting Genitourinary: Reports: No Symptoms Musculoskeletal: Reports: No Symptoms Skin: Reports: No Symptoms Neurological: Reports: No Symptoms Psychiatric: Reports: No Symptoms - Patient Data Vitals - Most Recent: Last Vital Signs Temp 98.2 F 03/02/19 08:45 Pulse 56 L 03/02/19 08:45 Resp 16 03/02/19 08:33 BP 126/69 03/02/19 08:33 Pulse Ox 96 03/02/19 08:45 Weight - Most Recent: 125.69 kg I&O - Last 24 Hours: Intake & Output 03/01/19 03/02/19 03/02/19 22:59 06:59 14:59 Intake Total 2550 2100 Output Total 300 900 Balance 2250 1200 Lab Results Last 24 Hours: Laboratory Results - last 24 hr 03/02/19 03/02/19 Range/Units 04:58 04:58 WBC 7.04 (4.23-9.07) K/mm3 RBC 4.32 L (4.63-6.08) M/mm3 Hgb 13.6 L (13.7-17.5) gm/dl Hct 41.7 (40.1-51.0) % MCV 96.5 H (79.0-92.2) fl MCH 31.5 (25.7-32.2) pg MCHC 32.6 (32.2-35.5) g/dl RDW Std Deviation 45.1 H (35.1-43.9) fL Plt Count 141 L (163-337) K/mm3 MPV 10.8 (9.4-12.3) fl Neut % (Auto) 85.2 H (34.0-67.9) % Lymph % (Auto) 7.1 L (21.8-53.1) % [place] % (Auto) 7.1 (5.3-12.2) % Eos % (Auto) 0.4 L (0.8-7.0) Baso % (Auto) 0.1 (0.1-1.2) % Neut # (Auto) 5.99 H (1.78-5.38) K/mm3 Lymph # (Auto) 0.50 L (1.32-3.57) K/mm3 [place] # (Auto) 0.50 (0.30-0.82) K/mm3 Eos # (Auto) 0.03 L (0.04-0.54) K/mm3 Baso # (Auto) 0.01 (0.01-0.08) K/mm3 Manual Slide Review Abnormal smear Sodium 141 (136-145) mEq/L Potassium 3.4 L (3.5-5.1) mEq/L Chloride 107 (98-107) mEq/L Carbon Dioxide 25 (21-32) mEq/L Anion Gap 12.4 (5-15) BUN 7 (7-18) mg/dL Creatinine 1.0 (0.7-1.3) mg/dL Est Cr Clr Drug Dosing 81.11 mL/min Estimated GFR (MDRD) > 60 (>60) mL/min BUN/Creatinine Ratio 7.0 L (14-18) Glucose 139 H (74-106) mg/dL Calcium 8.8 (8.5-10.1) mg/dL Magnesium 1.7 L (1.8-2.4) mg/dl Total Bilirubin 0.7 (0.2-1.0) mg/dL AST 9 L (15-37) U/L ALT 10 L (16-63) U/L Alkaline Phosphatase 36 L (46-116) U/L Total Protein 5.8 L (6.4-8.2) g/dl Albumin 2.5 L (3.4-5.0) g/dl Globulin 3.3 gm/dL Albumin/Globulin Ratio 0.8 L (1-2) George Results Last 24 Hours: Microbiology 03/01/19 10:41 Influenza Type A Antigen Screen - Final Nasal, Unspecified NEGATIVE INFLUENZA A VIRUS AG REFERENCE RANGE: NEGATIVE Influenza Type B Antigen Screen - Final NEGATIVE INFLUENZA B VIRUS AG REFERENCE RANGE: NEGATIVE Med Orders - Current: Current Medications Acetaminophen (Tylenol) 975 mg PO Q6H PRN PRN Reason: Pain (moderate 4-6) Last Admin: 03/02/19 08:40 Dose: 975 mg Amiodarone HCl (Cordarone) 200 mg PO DAILY [facility] Last Admin: 03/02/19 08:33 Dose: 200 mg Enoxaparin Sodium (Lovenox) 120 mg SUBCUT Q12H [facility] Last Admin: 03/02/19 05:19 Dose: 120 mg Furosemide (Lasix) 20 mg PO DAILY [facility] Last Admin: 03/02/19 08:32 Dose: 20 mg Hydromorphone HCl (Dilaudid) 0.5 mg IVPUSH Q2H PRN PRN Reason: Pain Last Admin: 03/01/19 23:17 Dose: 0.5 mg Piperacillin Sod/Tazobactam (Sod 4.5 gm/ Sodium Chloride) 100 mls @ 25 mls/hr IV Q8H [facility] Last Admin: 03/02/19 08:31 Dose: 25 mls/hr Dextrose/Sodium Chloride (Dextrose 5%-1/2 Ns) 1,000 mls @ 125 mls/hr IV ASDIRECTED [facility] Last Admin: 03/02/19 08:34 Dose: 125 mls/hr Magnesium Sulfate 2 gm/ Premix 50 mls @ 25 mls/hr IV ONETIME ONE Stop: 03/02/19 10:59 Potassium Chloride 10 meq/ (Premix) 100 mls @ 100 mls/hr IV Q1H [facility] Stop: 03/02/19 10:59 Losartan Potassium (Cozaar) 25 mg PO DAILY [facility] Last Admin: 03/02/19 08:32 Dose: 25 mg Metoprolol Succinate (Toprol Xl) 50 mg PO BEDTIME [facility] Last Admin: 03/01/19 20:35 Dose: 50 mg Ondansetron HCl (Zofran) 4 mg IVPUSH Q6H PRN PRN Reason: Nausea Last Admin: 03/01/19 12:19 Dose: 4 mg Sodium Chloride (Saline Flush) 10 ml FLUSH ASDIRECTED PRN PRN Reason: Keep Vein Open Last Admin: 02/27/19 22:23 Dose: 10 ml Discontinued Medications Acetaminophen (Tylenol) 1,000 mg PO Q6HR PRN PRN Reason: Pain (moderate 4-6) Diatrizoate Meglum/Diatrizoate Sod (Gastrografin 37%) 90 ml PO ONETIME ONE Stop: 02/27/19 22:58 Last Admin: 02/27/19 23:55 Dose: 90 ml Diatrizoate Meglum/Diatrizoate Sod (Gastrografin 37%) 90 ml PO ONETIME ONE Stop: 02/27/19 23:59 Last Admin: 02/28/19 09:25 Dose: Not Given Furosemide (Lasix) 20 mg IVPUSH ONETIME ONE Stop: 03/02/19 09:40 Hydromorphone HCl (Dilaudid) 0.5 mg IVPUSH ONETIME ONE Stop: 02/27/19 22:12 Last Admin: 02/27/19 22:22 Dose: 0.5 mg Hydromorphone HCl (Dilaudid) 0.5 mg IVPUSH ONETIME ONE Stop: 02/28/19 00:55 Last Admin: 02/28/19 01:03 Dose: 0.5 mg Sodium Chloride (Normal Saline) 1,000 mls @ 1,000 mls/hr IV .BOLUS STA Stop: 02/27/19 23:09 Last Admin: 02/27/19 22:21 Dose: 1,000 mls/hr Ceftriaxone Sodium 1 gm/ (Sodium Chloride) 100 mls @ 200 mls/hr IV ONETIME ONE Stop: 02/28/19 01:08 Last Admin: 02/28/19 00:47 Dose: 200 mls/hr Metronidazole 500 mg/ Premix 100 mls @ 100 mls/hr IV ONETIME ONE Stop: 02/28/19 01:38 Last Admin: 02/28/19 00:48 Dose: 100 mls/hr Ceftriaxone Sodium 1 gm/ (Sodium Chloride) 100 mls @ 200 mls/hr IV Q24H [facility] Metronidazole 500 mg/ Premix 100 mls @ 100 mls/hr IV Q8H [facility] Last Admin: 03/01/19 14:01 Dose: Not Given Dextrose/Sodium Chloride (Dextrose 5%-Normal Saline) 1,000 mls @ 100 mls/hr IV ASDIRECTED [facility] Last Infusion: 03/01/19 15:52 Dose: Infused Piperacillin Sod/Tazobactam (Sod 4.5 gm/ Sodium Chloride) 100 mls @ 200 mls/hr IV ONETIME ONE Stop: 02/28/19 09:29 Last Admin: 02/28/19 09:32 Dose: 200 mls/hr Sodium Chloride (Normal Saline) 500 mls @ 999 mls/hr IV .BOLUS ONE Stop: 03/01/19 10:46 Last Admin: 03/01/19 10:36 Dose: 999 mls/hr Iopamidol (Isovue-300 (61%)) 100 ml IVPUSH ONETIME ONE Stop: 02/27/19 22:58 Last Admin: 02/28/19 00:04 Dose: 100 ml Iopamidol (Isovue-300 (61%)) 100 ml IVPUSH ONETIME ONE Stop: 02/27/19 23:59 Last Admin: 02/28/19 09:25 Dose: Not Given Metoprolol Succinate (Toprol Xl) 50 mg PO BID [facility] Last Admin: 03/01/19 10:18 Dose: Not Given Ondansetron HCl (Zofran) 4 mg IVPUSH ONETIME ONE Stop: 02/27/19 22:11 Last Admin: 02/27/19 22:21 Dose: 4 mg - Exam General: Alert, Oriented, Cooperative, No Acute Distress GI/Abdominal Exam: Soft, No Abnormal Bruit, No Mass, Tender (moderately tender to palpation in the LLQ) Consult PN Assessment/Plan Procedures: Procedures BREATHING CAPACITY TEST (09/27/18) CO/[place] DIFFUSE CAPACITY (09/27/18) MRI BRAIN STEM W/O & W/DYE (07/29/13) Problem List Initiated/Reviewed/Updated: No Plan: Patient is HD#2 for acute diverticulitis with microperforation without abscess of phlegmon. He is admitted for medial management with IVF antibiotics. Pain is improving on antibiotics but he might be developing bowel obstruction vs narcotic ileus since he has an episode of emesis overnight. Labs, vitals and physical exam (moderate LLQ tenderness, no guarding or rebound tenderness) suggest that he is improving. However, I discussed with him that is he develops bowel obstruction as indicated by persistent nausea and vomiting, he night need surgery. He seems to understand. Plan - Continue NPO, IVF at 125cc/hr and IV antibiotics. He has no signs of fluid overload at this time and no signs of end organ dysfunction. - Recommend converting his home lasix to IV form at this time until he is able to take PO diet. - Ambulate at tolerated. He needs to be active to avoid ileus, also avoid opioid pain medications if possible.
[2019-03-02] MEDS: Potassium Chloride 10 MEQ in Premix Bag 1 BAG IV SCH ×2 (10:41→12:22)
--- NOTE | 2019-03-02 11:21 | PCM.PN ---
- General Info Date of Service: 03/02/19 Admission Dx/Problem (Free Text): Admission Diagnosis/Problem Admission Diagnosis/Problem Diverticulitis of colon with perforation Subjective Update: Patient has had poor urine output of less than 50 mL per hour. He also had an episode of emesis, but does state his pain is improved and he no longer had nausea after his emesis. patient also complains of reflux symptoms. decreased his metoprolol succinate from twice a day to once a day because of bradycardia. - Review of Systems General: Reports: No Symptoms HEENT: Reports: No Symptoms Pulmonary: Reports: No Symptoms Cardiovascular: Reports: No Symptoms Gastrointestinal: Reports: Abdominal Pain Musculoskeletal: Reports: No Symptoms Skin: Reports: No Symptoms Neurological: Reports: No Symptoms Psychiatric: Reports: No Symptoms - Patient Data Vitals - Most Recent: Last Vital Signs Temp 98.2 F 03/02/19 08:45 Pulse 56 L 03/02/19 08:45 Resp 16 03/02/19 08:33 BP 126/69 03/02/19 08:33 Pulse Ox 96 03/02/19 08:45 Weight - Most Recent: 277 lb 1.6 oz I&O - Last 24 Hours: Intake & Output 03/01/19 03/02/19 03/02/19 22:59 06:59 14:59 Intake Total 2550 2100 Output Total 300 900 Balance 2250 1200 Lab Results Last 24 Hours: Laboratory Results - last 24 hr 03/02/19 03/02/19 Range/Units 04:58 04:58 WBC 7.04 (4.23-9.07) K/mm3 RBC 4.32 L (4.63-6.08) M/mm3 Hgb 13.6 L (13.7-17.5) gm/dl Hct 41.7 (40.1-51.0) % MCV 96.5 H (79.0-92.2) fl MCH 31.5 (25.7-32.2) pg MCHC 32.6 (32.2-35.5) g/dl RDW Std Deviation 45.1 H (35.1-43.9) fL Plt Count 141 L (163-337) K/mm3 MPV 10.8 (9.4-12.3) fl Neut % (Auto) 85.2 H (34.0-67.9) % Lymph % (Auto) 7.1 L (21.8-53.1) % [place] % (Auto) 7.1 (5.3-12.2) % Eos % (Auto) 0.4 L (0.8-7.0) Baso % (Auto) 0.1 (0.1-1.2) % Neut # (Auto) 5.99 H (1.78-5.38) K/mm3 Lymph # (Auto) 0.50 L (1.32-3.57) K/mm3 [place] # (Auto) 0.50 (0.30-0.82) K/mm3 Eos # (Auto) 0.03 L (0.04-0.54) K/mm3 Baso # (Auto) 0.01 (0.01-0.08) K/mm3 Manual Slide Review Abnormal smear Sodium 141 (136-145) mEq/L Potassium 3.4 L (3.5-5.1) mEq/L Chloride 107 (98-107) mEq/L Carbon Dioxide 25 (21-32) mEq/L Anion Gap 12.4 (5-15) BUN 7 (7-18) mg/dL Creatinine 1.0 (0.7-1.3) mg/dL Est Cr Clr Drug Dosing 81.11 mL/min Estimated GFR (MDRD) > 60 (>60) mL/min BUN/Creatinine Ratio 7.0 L (14-18) Glucose 139 H (74-106) mg/dL Calcium 8.8 (8.5-10.1) mg/dL Magnesium 1.7 L (1.8-2.4) mg/dl Total Bilirubin 0.7 (0.2-1.0) mg/dL AST 9 L (15-37) U/L ALT 10 L (16-63) U/L Alkaline Phosphatase 36 L (46-116) U/L Total Protein 5.8 L (6.4-8.2) g/dl Albumin 2.5 L (3.4-5.0) g/dl Globulin 3.3 gm/dL Albumin/Globulin Ratio 0.8 L (1-2) George Results Last 24 Hours: Microbiology 03/01/19 10:41 Influenza Type A Antigen Screen - Final Nasal, Unspecified NEGATIVE INFLUENZA A VIRUS AG REFERENCE RANGE: NEGATIVE Influenza Type B Antigen Screen - Final NEGATIVE INFLUENZA B VIRUS AG REFERENCE RANGE: NEGATIVE Med Orders - Current: Current Medications Acetaminophen (Tylenol) 975 mg PO Q6H PRN PRN Reason: Pain (moderate 4-6) Last Admin: 03/02/19 08:40 Dose: 975 mg Amiodarone HCl (Cordarone) 200 mg PO DAILY [facility] Last Admin: 03/02/19 08:33 Dose: 200 mg Enoxaparin Sodium (Lovenox) 120 mg SUBCUT Q12H [facility] Last Admin: 03/02/19 05:19 Dose: 120 mg Furosemide (Lasix) 20 mg IVPUSH DAILY [facility] Piperacillin Sod/Tazobactam (Sod 4.5 gm/ Sodium Chloride) 100 mls @ 25 mls/hr IV Q8H [facility] Last Admin: 03/02/19 08:31 Dose: 25 mls/hr Dextrose/Sodium Chloride (Dextrose 5%-1/2 Ns) 1,000 mls @ 125 mls/hr IV ASDIRECTED [facility] Last Admin: 03/02/19 08:34 Dose: 125 mls/hr Losartan Potassium (Cozaar) 25 mg PO DAILY [facility] Last Admin: 03/02/19 08:32 Dose: 25 mg Metoprolol Succinate (Toprol Xl) 50 mg PO BEDTIME [facility] Last Admin: 03/01/19 20:35 Dose: 50 mg Ondansetron HCl (Zofran) 4 mg IVPUSH Q6H PRN PRN Reason: Nausea Last Admin: 03/01/19 12:19 Dose: 4 mg Sodium Chloride (Saline Flush) 10 ml FLUSH ASDIRECTED PRN PRN Reason: Keep Vein Open Last Admin: 02/27/19 22:23 Dose: 10 ml Discontinued Medications Acetaminophen (Tylenol) 1,000 mg PO Q6HR PRN PRN Reason: Pain (moderate 4-6) Diatrizoate Meglum/Diatrizoate Sod (Gastrografin 37%) 90 ml PO ONETIME ONE Stop: 02/27/19 22:58 Last Admin: 02/27/19 23:55 Dose: 90 ml Diatrizoate Meglum/Diatrizoate Sod (Gastrografin 37%) 90 ml PO ONETIME ONE Stop: 02/27/19 23:59 Last Admin: 02/28/19 09:25 Dose: Not Given Furosemide (Lasix) 20 mg PO DAILY [facility] Last Admin: 03/02/19 08:32 Dose: 20 mg Furosemide (Lasix) 20 mg IVPUSH ONETIME ONE Stop: 03/02/19 09:40 Last Admin: 03/02/19 10:46 Dose: 20 mg Hydromorphone HCl (Dilaudid) 0.5 mg IVPUSH ONETIME ONE Stop: 02/27/19 22:12 Last Admin: 02/27/19 22:22 Dose: 0.5 mg Hydromorphone HCl (Dilaudid) 0.5 mg IVPUSH ONETIME ONE Stop: 02/28/19 00:55 Last Admin: 02/28/19 01:03 Dose: 0.5 mg Hydromorphone HCl (Dilaudid) 0.5 mg IVPUSH Q2H PRN PRN Reason: Pain Last Admin: 03/01/19 23:17 Dose: 0.5 mg Sodium Chloride (Normal Saline) 1,000 mls @ 1,000 mls/hr IV .BOLUS STA Stop: 02/27/19 23:09 Last Admin: 02/27/19 22:21 Dose: 1,000 mls/hr Ceftriaxone Sodium 1 gm/ (Sodium Chloride) 100 mls @ 200 mls/hr IV ONETIME ONE Stop: 02/28/19 01:08 Last Admin: 02/28/19 00:47 Dose: 200 mls/hr Metronidazole 500 mg/ Premix 100 mls @ 100 mls/hr IV ONETIME ONE Stop: 02/28/19 01:38 Last Admin: 02/28/19 00:48 Dose: 100 mls/hr Ceftriaxone Sodium 1 gm/ (Sodium Chloride) 100 mls @ 200 mls/hr IV Q24H [facility] Metronidazole 500 mg/ Premix 100 mls @ 100 mls/hr IV Q8H [facility] Last Admin: 03/01/19 14:01 Dose: Not Given Dextrose/Sodium Chloride (Dextrose 5%-Normal Saline) 1,000 mls @ 100 mls/hr IV ASDIRECTED [facility] Last Infusion: 03/01/19 15:52 Dose: Infused Piperacillin Sod/Tazobactam (Sod 4.5 gm/ Sodium Chloride) 100 mls @ 200 mls/hr IV ONETIME ONE Stop: 02/28/19 09:29 Last Admin: 02/28/19 09:32 Dose: 200 mls/hr Sodium Chloride (Normal Saline) 500 mls @ 999 mls/hr IV .BOLUS ONE Stop: 03/01/19 10:46 Last Admin: 03/01/19 10:36 Dose: 999 mls/hr Magnesium Sulfate 2 gm/ Premix 50 mls @ 25 mls/hr IV ONETIME ONE Stop: 03/02/19 10:59 Last Admin: 03/02/19 10:40 Dose: 25 mls/hr Potassium Chloride 10 meq/ (Premix) 100 mls @ 100 mls/hr IV Q1H [facility] Stop: 03/02/19 10:59 Last Admin: 03/02/19 10:41 Dose: 100 mls/hr Iopamidol (Isovue-300 (61%)) 100 ml IVPUSH ONETIME ONE Stop: 02/27/19 22:58 Last Admin: 02/28/19 00:04 Dose: 100 ml Iopamidol (Isovue-300 (61%)) 100 ml IVPUSH ONETIME ONE Stop: 02/27/19 23:59 Last Admin: 02/28/19 09:25 Dose: Not Given Metoprolol Succinate (Toprol Xl) 50 mg PO BID [facility] Last Admin: 03/01/19 10:18 Dose: Not Given Ondansetron HCl (Zofran) 4 mg IVPUSH ONETIME ONE Stop: 02/27/19 22:11 Last Admin: 02/27/19 22:21 Dose: 4 mg - Exam General: Alert, Oriented HEENT: Pupils Equal, EOMI, Mucous Membr. Moist/[place] Neck: Supple Lungs: Clear to Auscultation, Normal Respiratory Effort Cardiovascular: Regular Rhythm, Bradycardia - Problem List Review Problem List Initiated/Reviewed/Updated: Yes - My Orders Last 24 Hours: My Active Orders 03/01/19 15:00 Dextrose 5%-0.45% NaCl [Dextrose 5%-1/2 NS] 1,000 ml IV ASDIRECTED 03/01/19 21:00 Metoprolol Succinate [Toprol XL] 50 mg PO BEDTIME 03/03/19 05:11 CBC WITH AUTO DIFF [HEME] AM CMP [COMPREHENSIVE METABOLIC PN,CMP] [CHEM] AM MAGNESIUM [CHEM] AM 03/04/19 05:11 CBC WITH AUTO DIFF [HEME] AM CMP [COMPREHENSIVE METABOLIC PN,CMP] [CHEM] AM MAGNESIUM [CHEM] AM 03/05/19 05:11 CBC WITH AUTO DIFF [HEME] AM CMP [COMPREHENSIVE METABOLIC PN,CMP] [CHEM] AM MAGNESIUM [CHEM] AM - Plan Plan:: Assessment * Diverticulitis with microperforation found on CT * History of atrial fibrillation on Eliquis for anticoagulation * History of congestive heart failure * flu like symptoms - maybe due to systemic symptoms 2/2 diverticulitis and antibiotics. * episode of emesis and reflux * Decreased UOP. * Bradycardia and blood pressure on the low side Plan * Admit to med surge on telemetry * Influenza screen - negative * Lasix 20 mg IV * Protonix 40 mg IV daily * follow closely with Dr. Light * D5NS at 100 mL per hour * Zosyn * Hold losartan and morning metoprolol XR. * CBC, CMP, magnesium daily * Lovenox for anticoagulation * Reconciled home meds. Hold Eliquis secondary to potential for surgical intervention. * CODE STATUS: Full code * length of stay 3-4 days
[2019-03-02] MEDS ORDERED: Ketorolac 30 MG/ML SDV IVPUSH PRN (11:31)
[2019-03-02] MEDS: Ondansetron 4 MG/2 ML SDV IVPUSH PRN (14:38)
[2019-03-02] MEDS: Pantoprazole 40 MG Vial IVPUSH SCH (14:43)
[2019-03-02] MEDS: Calcium Carbonate 500 MG Tab.Chew PO PRN ×2 (14:43→21:15)
[2019-03-02] MEDS: Metoprolol Succinate 50 MG Tab.ER PO SCH (21:06)
[2019-03-03] MEDS: Piperacillin/Tazobactam 4.5 GM in Sodium Chloride 0.9% 100 ML IV SCH ×3 (00:49→17:40)
[2019-03-03] MEDS: Dextrose 5%-0.45% NaCl 1,000 ML IV SCH (00:53)
[2019-03-03] MEDS: Enoxaparin 120 MG/0.8 ML Syringe SUBCUT SCH ×2 (05:29→17:41)
[2019-03-03] MEDS ORDERED: Dextrose 5%-0.45% NaCl 1,000 ML IV SCH ×2 (08:15→13:15)
[2019-03-03] MEDS: Potassium Chloride 10 MEQ in Premix Bag 1 BAG IV SCH ×4 (08:53→12:12)
[2019-03-03] MEDS: Losartan 25 MG Tab PO SCH (08:57)
[2019-03-03] MEDS: Pantoprazole 40 MG Vial IVPUSH SCH (08:57)
[2019-03-03] MEDS: Furosemide 20 MG/2 ML VIAL IVPUSH SCH (08:57)
[2019-03-03] MEDS: Amiodarone 200 MG Tab PO SCH (08:57)
[2019-03-03] MEDS: Ondansetron 4 MG/2 ML SDV IVPUSH PRN (09:22)
[2019-03-03] MEDS ORDERED: Acetaminophen/Butalbital/Caffeine 325-50-40 MG Tab PO PRN (10:02)
--- NOTE | 2019-03-03 13:01 | PCM.PN ---
- General Info Date of Service: 03/03/19 Admission Dx/Problem (Free Text): Admission Diagnosis/Problem Admission Diagnosis/Problem Diverticulitis of colon with perforation Subjective Update: Brooke states that his pain is improving. He has had some loose stools that are green in color. He had 1 small emesis yesterday but generally is feeling much better. No fever. Functional Status: Reports: Pain Controlled - Review of Systems General: Reports: No Symptoms HEENT: Reports: No Symptoms Pulmonary: Reports: No Symptoms Cardiovascular: Reports: No Symptoms Gastrointestinal: Reports: Abdominal Pain (mild lower abdominal pain. Much improved.) - Patient Data Vitals - Most Recent: Last Vital Signs Temp 97.7 F 03/03/19 08:13 Pulse 52 L 03/03/19 08:13 Resp 18 03/03/19 08:13 BP 133/72 03/03/19 08:57 Pulse Ox 94 L 03/03/19 08:13 Weight - Most Recent: 280 lb 6.4 oz I&O - Last 24 Hours: Intake & Output 03/02/19 03/03/19 03/03/19 22:59 06:59 14:59 Intake Total 2225 1850 320 Output Total 1175 600 Balance 1050 1250 320 Lab Results Last 24 Hours: Laboratory Results - last 24 hr 03/03/19 03/03/19 Range/Units 05:08 05:08 WBC 5.56 (4.23-9.07) K/mm3 RBC 4.11 L (4.63-6.08) M/mm3 Hgb 12.7 L (13.7-17.5) gm/dl Hct 39.6 L (40.1-51.0) % MCV 96.4 H (79.0-92.2) fl MCH 30.9 (25.7-32.2) pg MCHC 32.1 L (32.2-35.5) g/dl RDW Std Deviation 44.6 H (35.1-43.9) fL Plt Count 171 (163-337) K/mm3 MPV 11.0 (9.4-12.3) fl Neut % (Auto) 71.1 H (34.0-67.9) % Lymph % (Auto) 11.9 L (21.8-53.1) % [place] % (Auto) 11.0 (5.3-12.2) % Eos % (Auto) 5.2 (0.8-7.0) Baso % (Auto) 0.4 (0.1-1.2) % Neut # (Auto) 3.96 (1.78-5.38) K/mm3 Lymph # (Auto) 0.66 L (1.32-3.57) K/mm3 [place] # (Auto) 0.61 (0.30-0.82) K/mm3 Eos # (Auto) 0.29 (0.04-0.54) K/mm3 Baso # (Auto) 0.02 (0.01-0.08) K/mm3 Sodium 139 (136-145) mEq/L Potassium 3.3 L (3.5-5.1) mEq/L Chloride 105 (98-107) mEq/L Carbon Dioxide 26 (21-32) mEq/L Anion Gap 11.3 (5-15) BUN 6 L (7-18) mg/dL Creatinine 1.0 (0.7-1.3) mg/dL Est Cr Clr Drug Dosing 81.11 mL/min Estimated GFR (MDRD) > 60 (>60) mL/min BUN/Creatinine Ratio 6.0 L (14-18) Glucose 128 H (74-106) mg/dL Calcium 8.8 (8.5-10.1) mg/dL Magnesium 1.9 (1.8-2.4) mg/dl Total Bilirubin 0.7 (0.2-1.0) mg/dL AST 14 L (15-37) U/L ALT 13 L (16-63) U/L Alkaline Phosphatase 34 L (46-116) U/L Total Protein 5.7 L (6.4-8.2) g/dl Albumin 2.5 L (3.4-5.0) g/dl Globulin 3.2 gm/dL Albumin/Globulin Ratio 0.8 L (1-2) Med Orders - Current: Current Medications Acetaminophen (Tylenol) 975 mg PO Q6H PRN PRN Reason: Pain (moderate 4-6) Last Admin: 03/02/19 17:38 Dose: 975 mg Acetaminophen/Butalbital/Caffeine (Fioricet 325-50-40 Mg) 1 tab PO Q4H PRN PRN Reason: Headache Last Admin: 03/03/19 10:27 Dose: 1 tab Amiodarone HCl (Cordarone) 200 mg PO DAILY [facility] Last Admin: 03/03/19 08:57 Dose: 200 mg Calcium Carbonate/Glycine (Tums) 1,000 mg PO Q2HR PRN PRN Reason: Indigestion Last Admin: 03/02/19 21:15 Dose: 1,000 mg Enoxaparin Sodium (Lovenox) 120 mg SUBCUT Q12H [facility] Last Admin: 03/03/19 05:29 Dose: 120 mg Furosemide (Lasix) 20 mg IVPUSH DAILY [facility] Last Admin: 03/03/19 08:57 Dose: 20 mg Furosemide (Lasix) 20 mg IVPUSH ONETIME ONE Stop: 03/03/19 15:01 Piperacillin Sod/Tazobactam (Sod 4.5 gm/ Sodium Chloride) 100 mls @ 25 mls/hr IV Q8H [facility] Last Admin: 03/03/19 08:57 Dose: 25 mls/hr Dextrose/Sodium Chloride (Dextrose 5%-1/2 Ns) 1,000 mls @ 100 mls/hr IV ASDIRECTED [facility] Last Admin: 03/03/19 09:21 Dose: 100 mls/hr Ketorolac Tromethamine (Toradol) 30 mg IVPUSH Q6H PRN PRN Reason: Pain (moderate 4-6) Last Admin: 03/03/19 00:59 Dose: 30 mg Losartan Potassium (Cozaar) 25 mg PO DAILY [facility] Last Admin: 03/03/19 08:57 Dose: 25 mg Metoprolol Succinate (Toprol Xl) 50 mg PO BEDTIME [facility] Last Admin: 03/02/19 21:06 Dose: 50 mg Ondansetron HCl (Zofran) 4 mg IVPUSH Q6H PRN PRN Reason: Nausea Last Admin: 03/03/19 09:22 Dose: 4 mg Pantoprazole Sodium (Protonix Iv) 40 mg IVPUSH DAILY [facility] Last Admin: 03/03/19 08:57 Dose: 40 mg Sodium Chloride (Saline Flush) 10 ml FLUSH ASDIRECTED PRN PRN Reason: Keep Vein Open Last Admin: 02/27/19 22:23 Dose: 10 ml Discontinued Medications Acetaminophen (Tylenol) 1,000 mg PO Q6HR PRN PRN Reason: Pain (moderate 4-6) Diatrizoate Meglum/Diatrizoate Sod (Gastrografin 37%) 90 ml PO ONETIME ONE Stop: 02/27/19 22:58 Last Admin: 02/27/19 23:55 Dose: 90 ml Diatrizoate Meglum/Diatrizoate Sod (Gastrografin 37%) 90 ml PO ONETIME ONE Stop: 02/27/19 23:59 Last Admin: 02/28/19 09:25 Dose: Not Given Furosemide (Lasix) 20 mg PO DAILY [facility] Last Admin: 03/02/19 08:32 Dose: 20 mg Furosemide (Lasix) 20 mg IVPUSH ONETIME ONE Stop: 03/02/19 09:40 Last Admin: 03/02/19 10:46 Dose: 20 mg Hydromorphone HCl (Dilaudid) 0.5 mg IVPUSH ONETIME ONE Stop: 02/27/19 22:12 Last Admin: 02/27/19 22:22 Dose: 0.5 mg Hydromorphone HCl (Dilaudid) 0.5 mg IVPUSH ONETIME ONE Stop: 02/28/19 00:55 Last Admin: 02/28/19 01:03 Dose: 0.5 mg Hydromorphone HCl (Dilaudid) 0.5 mg IVPUSH Q2H PRN PRN Reason: Pain Last Admin: 03/01/19 23:17 Dose: 0.5 mg Sodium Chloride (Normal Saline) 1,000 mls @ 1,000 mls/hr IV .BOLUS STA Stop: 02/27/19 23:09 Last Admin: 02/27/19 22:21 Dose: 1,000 mls/hr Ceftriaxone Sodium 1 gm/ (Sodium Chloride) 100 mls @ 200 mls/hr IV ONETIME ONE Stop: 02/28/19 01:08 Last Admin: 02/28/19 00:47 Dose: 200 mls/hr Metronidazole 500 mg/ Premix 100 mls @ 100 mls/hr IV ONETIME ONE Stop: 02/28/19 01:38 Last Admin: 02/28/19 00:48 Dose: 100 mls/hr Ceftriaxone Sodium 1 gm/ (Sodium Chloride) 100 mls @ 200 mls/hr IV Q24H [facility] Metronidazole 500 mg/ Premix 100 mls @ 100 mls/hr IV Q8H [facility] Last Admin: 03/01/19 14:01 Dose: Not Given Dextrose/Sodium Chloride (Dextrose 5%-Normal Saline) 1,000 mls @ 100 mls/hr IV ASDIRECTED [facility] Last Infusion: 03/01/19 15:52 Dose: Infused Piperacillin Sod/Tazobactam (Sod 4.5 gm/ Sodium Chloride) 100 mls @ 200 mls/hr IV ONETIME ONE Stop: 02/28/19 09:29 Last Admin: 02/28/19 09:32 Dose: 200 mls/hr Sodium Chloride (Normal Saline) 500 mls @ 999 mls/hr IV .BOLUS ONE Stop: 03/01/19 10:46 Last Admin: 03/01/19 10:36 Dose: 999 mls/hr Dextrose/Sodium Chloride (Dextrose 5%-1/2 Ns) 1,000 mls @ 125 mls/hr IV ASDIRECTED [facility] Last Admin: 03/03/19 00:53 Dose: 125 mls/hr Magnesium Sulfate 2 gm/ Premix 50 mls @ 25 mls/hr IV ONETIME ONE Stop: 03/02/19 10:59 Last Admin: 03/02/19 10:40 Dose: 25 mls/hr Potassium Chloride 10 meq/ (Premix) 100 mls @ 100 mls/hr IV Q1H [facility] Stop: 03/02/19 10:59 Last Admin: 03/02/19 12:22 Dose: 100 mls/hr Potassium Chloride 10 meq/ (Premix) 100 mls @ 100 mls/hr IV Q1H [facility] Stop: 03/03/19 12:29 Last Admin: 03/03/19 12:12 Dose: 100 mls/hr Iopamidol (Isovue-300 (61%)) 100 ml IVPUSH ONETIME ONE Stop: 02/27/19 22:58 Last Admin: 02/28/19 00:04 Dose: 100 ml Iopamidol (Isovue-300 (61%)) 100 ml IVPUSH ONETIME ONE Stop: 02/27/19 23:59 Last Admin: 02/28/19 09:25 Dose: Not Given Metoprolol Succinate (Toprol Xl) 50 mg PO BID [facility] Last Admin: 03/01/19 10:18 Dose: Not Given Ondansetron HCl (Zofran) 4 mg IVPUSH ONETIME ONE Stop: 02/27/19 22:11 Last Admin: 02/27/19 22:21 Dose: 4 mg - Exam General: Alert, Oriented HEENT: Pupils Equal Neck: Supple Lungs: Clear to Auscultation, Normal Respiratory Effort Cardiovascular: Regular Rate, Regular Rhythm GI/Abdominal Exam: Normal Bowel Sounds, Soft, No Distention, Tender (mild left lower quadrant tenderness with deep palpation) Skin: Warm, Dry, Intact Neurological: No New Focal Deficit Psy/Mental Status: Alert, Normal Affect, Normal Mood - Problem List Review Problem List Initiated/Reviewed/Updated: Yes - My Orders Last 24 Hours: My Active Orders 03/02/19 14:35 Calcium Carbonate [Tums] 1,000 mg PO Q2HR PRN 03/02/19 14:45 Pantoprazole [ProTONIX IV] 40 mg IVPUSH DAILY 03/03/19 08:15 Dextrose 5%-0.45% NaCl [Dextrose 5%-1/2 NS] 1,000 ml IV ASDIRECTED 03/03/19 10:02 Acetaminophen/Butalbital/Caff [Fioricet 325-50-40 MG] 1 tab PO Q4H PRN 03/03/19 15:00 Furosemide [Lasix] 20 mg IVPUSH ONETIME ONE 03/03/19 Lunch Clear Liquid Diet [DIET] 03/04/19 05:11 CBC WITH AUTO DIFF [HEME] AM CMP [COMPREHENSIVE METABOLIC PN,CMP] [CHEM] AM MAGNESIUM [CHEM] AM 03/05/19 05:11 CBC WITH AUTO DIFF [HEME] AM CMP [COMPREHENSIVE METABOLIC PN,CMP] [CHEM] AM MAGNESIUM [CHEM] AM - Plan Plan:: Assessment * Diverticulitis with microperforation found on CT * on Zosyn * History of atrial fibrillation on Eliquis for anticoagulation * History of congestive heart failure * flu like symptoms - maybe due to systemic symptoms 2/2 diverticulitis and antibiotics. * Influenza screen - negative * episode of emesis * Decreased UOP. * likely third spacing. * Improved with Lasix * Bradycardia and blood pressure on the low side Plan * start clear liquids and advance to full tonight. If continues to do better will give regular diet tomorrow and sent home. * Lasix 20 mg IV twice a day * Protonix 40 mg IV daily * follow closely with Dr. Light * D5NS at 100 mL per hour * Zosyn * continue to hold losartan and morning metoprolol XR. * CBC, CMP, magnesium daily * Lovenox for anticoagulation * Reconciled home meds. Hold Eliquis secondary to potential for surgical intervention. * CODE STATUS: Full code * length of stay 3-4 days
--- NOTE | 2019-03-03 13:23 | PCM.SURGPN ---
- General Info Date of Service: 03/03/19 Admission Diagnosis/Problem: Diverticulitis Functional Status: Reports: Pain Controlled - Review of Systems General: Reports: No Symptoms HEENT: Reports: No Symptoms Pulmonary: Reports: No Symptoms Cardiovascular: Reports: No Symptoms Gastrointestinal: Reports: Abdominal Pain (minimal), Vomiting (minimal) Genitourinary: Reports: No Symptoms Musculoskeletal: Reports: No Symptoms Skin: Reports: No Symptoms - Patient Data Vitals - Most Recent: Last Vital Signs Temp 97.7 F 03/03/19 08:13 Pulse 52 L 03/03/19 08:13 Resp 18 03/03/19 08:13 BP 133/72 03/03/19 08:57 Pulse Ox 94 L 03/03/19 08:13 Weight - Most Recent: 127.187 kg I&O - Last 24 Hours: Intake & Output 03/02/19 03/03/19 03/03/19 22:59 06:59 14:59 Intake Total 2225 1850 320 Output Total 1175 600 Balance 1050 1250 320 Lab Results Last 24 Hrs: Laboratory Results - last 24 hr 03/03/19 03/03/19 Range/Units 05:08 05:08 WBC 5.56 (4.23-9.07) K/mm3 RBC 4.11 L (4.63-6.08) M/mm3 Hgb 12.7 L (13.7-17.5) gm/dl Hct 39.6 L (40.1-51.0) % MCV 96.4 H (79.0-92.2) fl MCH 30.9 (25.7-32.2) pg MCHC 32.1 L (32.2-35.5) g/dl RDW Std Deviation 44.6 H (35.1-43.9) fL Plt Count 171 (163-337) K/mm3 MPV 11.0 (9.4-12.3) fl Neut % (Auto) 71.1 H (34.0-67.9) % Lymph % (Auto) 11.9 L (21.8-53.1) % [place] % (Auto) 11.0 (5.3-12.2) % Eos % (Auto) 5.2 (0.8-7.0) Baso % (Auto) 0.4 (0.1-1.2) % Neut # (Auto) 3.96 (1.78-5.38) K/mm3 Lymph # (Auto) 0.66 L (1.32-3.57) K/mm3 [place] # (Auto) 0.61 (0.30-0.82) K/mm3 Eos # (Auto) 0.29 (0.04-0.54) K/mm3 Baso # (Auto) 0.02 (0.01-0.08) K/mm3 Sodium 139 (136-145) mEq/L Potassium 3.3 L (3.5-5.1) mEq/L Chloride 105 (98-107) mEq/L Carbon Dioxide 26 (21-32) mEq/L Anion Gap 11.3 (5-15) BUN 6 L (7-18) mg/dL Creatinine 1.0 (0.7-1.3) mg/dL Est Cr Clr Drug Dosing 81.11 mL/min Estimated GFR (MDRD) > 60 (>60) mL/min BUN/Creatinine Ratio 6.0 L (14-18) Glucose 128 H (74-106) mg/dL Calcium 8.8 (8.5-10.1) mg/dL Magnesium 1.9 (1.8-2.4) mg/dl Total Bilirubin 0.7 (0.2-1.0) mg/dL AST 14 L (15-37) U/L ALT 13 L (16-63) U/L Alkaline Phosphatase 34 L (46-116) U/L Total Protein 5.7 L (6.4-8.2) g/dl Albumin 2.5 L (3.4-5.0) g/dl Globulin 3.2 gm/dL Albumin/Globulin Ratio 0.8 L (1-2) Med Orders - Current: Current Medications Acetaminophen (Tylenol) 975 mg PO Q6H PRN PRN Reason: Pain (moderate 4-6) Last Admin: 03/02/19 17:38 Dose: 975 mg Acetaminophen/Butalbital/Caffeine (Fioricet 325-50-40 Mg) 1 tab PO Q4H PRN PRN Reason: Headache Last Admin: 03/03/19 10:27 Dose: 1 tab Amiodarone HCl (Cordarone) 200 mg PO DAILY [facility] Last Admin: 03/03/19 08:57 Dose: 200 mg Calcium Carbonate/Glycine (Tums) 1,000 mg PO Q2HR PRN PRN Reason: Indigestion Last Admin: 03/02/19 21:15 Dose: 1,000 mg Enoxaparin Sodium (Lovenox) 120 mg SUBCUT Q12H [facility] Last Admin: 03/03/19 05:29 Dose: 120 mg Furosemide (Lasix) 20 mg IVPUSH DAILY [facility] Last Admin: 03/03/19 08:57 Dose: 20 mg Furosemide (Lasix) 20 mg IVPUSH ONETIME ONE Stop: 03/03/19 15:01 Piperacillin Sod/Tazobactam (Sod 4.5 gm/ Sodium Chloride) 100 mls @ 25 mls/hr IV Q8H [facility] Last Admin: 03/03/19 08:57 Dose: 25 mls/hr Dextrose/Sodium Chloride (Dextrose 5%-1/2 Ns) 1,000 mls @ 50 mls/hr IV ASDIRECTED [facility] Ketorolac Tromethamine (Toradol) 30 mg IVPUSH Q6H PRN PRN Reason: Pain (moderate 4-6) Last Admin: 03/03/19 00:59 Dose: 30 mg Losartan Potassium (Cozaar) 25 mg PO DAILY [facility] Last Admin: 03/03/19 08:57 Dose: 25 mg Metoprolol Succinate (Toprol Xl) 50 mg PO BEDTIME [facility] Last Admin: 03/02/19 21:06 Dose: 50 mg Ondansetron HCl (Zofran) 4 mg IVPUSH Q6H PRN PRN Reason: Nausea Last Admin: 03/03/19 09:22 Dose: 4 mg Pantoprazole Sodium (Protonix Iv) 40 mg IVPUSH DAILY [facility] Last Admin: 03/03/19 08:57 Dose: 40 mg Sodium Chloride (Saline Flush) 10 ml FLUSH ASDIRECTED PRN PRN Reason: Keep Vein Open Last Admin: 02/27/19 22:23 Dose: 10 ml Discontinued Medications Acetaminophen (Tylenol) 1,000 mg PO Q6HR PRN PRN Reason: Pain (moderate 4-6) Diatrizoate Meglum/Diatrizoate Sod (Gastrografin 37%) 90 ml PO ONETIME ONE Stop: 02/27/19 22:58 Last Admin: 02/27/19 23:55 Dose: 90 ml Diatrizoate Meglum/Diatrizoate Sod (Gastrografin 37%) 90 ml PO ONETIME ONE Stop: 02/27/19 23:59 Last Admin: 02/28/19 09:25 Dose: Not Given Furosemide (Lasix) 20 mg PO DAILY [facility] Last Admin: 03/02/19 08:32 Dose: 20 mg Furosemide (Lasix) 20 mg IVPUSH ONETIME ONE Stop: 03/02/19 09:40 Last Admin: 03/02/19 10:46 Dose: 20 mg Hydromorphone HCl (Dilaudid) 0.5 mg IVPUSH ONETIME ONE Stop: 02/27/19 22:12 Last Admin: 02/27/19 22:22 Dose: 0.5 mg Hydromorphone HCl (Dilaudid) 0.5 mg IVPUSH ONETIME ONE Stop: 02/28/19 00:55 Last Admin: 02/28/19 01:03 Dose: 0.5 mg Hydromorphone HCl (Dilaudid) 0.5 mg IVPUSH Q2H PRN PRN Reason: Pain Last Admin: 03/01/19 23:17 Dose: 0.5 mg Sodium Chloride (Normal Saline) 1,000 mls @ 1,000 mls/hr IV .BOLUS STA Stop: 02/27/19 23:09 Last Admin: 02/27/19 22:21 Dose: 1,000 mls/hr Ceftriaxone Sodium 1 gm/ (Sodium Chloride) 100 mls @ 200 mls/hr IV ONETIME ONE Stop: 02/28/19 01:08 Last Admin: 02/28/19 00:47 Dose: 200 mls/hr Metronidazole 500 mg/ Premix 100 mls @ 100 mls/hr IV ONETIME ONE Stop: 02/28/19 01:38 Last Admin: 02/28/19 00:48 Dose: 100 mls/hr Ceftriaxone Sodium 1 gm/ (Sodium Chloride) 100 mls @ 200 mls/hr IV Q24H [facility] Metronidazole 500 mg/ Premix 100 mls @ 100 mls/hr IV Q8H [facility] Last Admin: 03/01/19 14:01 Dose: Not Given Dextrose/Sodium Chloride (Dextrose 5%-Normal Saline) 1,000 mls @ 100 mls/hr IV ASDIRECTED [facility] Last Infusion: 03/01/19 15:52 Dose: Infused Piperacillin Sod/Tazobactam (Sod 4.5 gm/ Sodium Chloride) 100 mls @ 200 mls/hr IV ONETIME ONE Stop: 02/28/19 09:29 Last Admin: 02/28/19 09:32 Dose: 200 mls/hr Sodium Chloride (Normal Saline) 500 mls @ 999 mls/hr IV .BOLUS ONE Stop: 03/01/19 10:46 Last Admin: 03/01/19 10:36 Dose: 999 mls/hr Dextrose/Sodium Chloride (Dextrose 5%-1/2 Ns) 1,000 mls @ 125 mls/hr IV ASDIRECTED [facility] Last Admin: 03/03/19 00:53 Dose: 125 mls/hr Magnesium Sulfate 2 gm/ Premix 50 mls @ 25 mls/hr IV ONETIME ONE Stop: 03/02/19 10:59 Last Admin: 03/02/19 10:40 Dose: 25 mls/hr Potassium Chloride 10 meq/ (Premix) 100 mls @ 100 mls/hr IV Q1H [facility] Stop: 03/02/19 10:59 Last Admin: 03/02/19 12:22 Dose: 100 mls/hr Potassium Chloride 10 meq/ (Premix) 100 mls @ 100 mls/hr IV Q1H [facility] Stop: 03/03/19 12:29 Last Admin: 03/03/19 12:12 Dose: 100 mls/hr Dextrose/Sodium Chloride (Dextrose 5%-1/2 Ns) 1,000 mls @ 100 mls/hr IV ASDIRECTED [facility] Last Admin: 03/03/19 09:21 Dose: 100 mls/hr Iopamidol (Isovue-300 (61%)) 100 ml IVPUSH ONETIME ONE Stop: 02/27/19 22:58 Last Admin: 02/28/19 00:04 Dose: 100 ml Iopamidol (Isovue-300 (61%)) 100 ml IVPUSH ONETIME ONE Stop: 02/27/19 23:59 Last Admin: 02/28/19 09:25 Dose: Not Given Metoprolol Succinate (Toprol Xl) 50 mg PO BID [facility] Last Admin: 03/01/19 10:18 Dose: Not Given Ondansetron HCl (Zofran) 4 mg IVPUSH ONETIME ONE Stop: 02/27/19 22:11 Last Admin: 02/27/19 22:21 Dose: 4 mg - Exam Wound/Incisions: Healing Well General: Alert, Oriented, Cooperative, No Acute Distress GI/Abdominal Exam: Normal Bowel Sounds, Soft, Non-Tender, No Organomegaly, No Distention, No Mass - Problem List Review Problem List Initiated/Reviewed/Updated: No - My Orders Last 24 Hours: Active Orders 24 hr Category Date Time 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 Cons 03/03/19 11:08 Active Clear Liquid Diet [DIET] Diet 03/03/19 Lunch Active Full Liquid Diet [DIET] Diet 03/03/19 Dinner Active CBC WITH AUTO DIFF [HEME] AM Lab 03/04/19 05:11 Ordered CBC WITH AUTO DIFF [HEME] AM Lab 03/05/19 05:11 Ordered CMP [COMPREHENSIVE METABOLIC PN,CMP] [CHEM] AM Lab 03/04/19 05:11 Ordered CMP [COMPREHENSIVE METABOLIC PN,CMP] [CHEM] AM Lab 03/05/19 05:11 Ordered MAGNESIUM [CHEM] AM Lab 03/04/19 05:11 Ordered MAGNESIUM [CHEM] AM Lab 03/05/19 05:11 Ordered Acetaminophen/Butalbital/Caff [Fioricet 325-50-40 MG] Med 03/03/19 10:02 Active 1 tab PO Q4H PRN Calcium Carbonate [Tums] Med 03/02/19 14:35 Active 1,000 mg PO Q2HR PRN Dextrose 5%-0.45% NaCl [Dextrose 5%-1/2 NS] 1,000 ml Med 03/03/19 13:15 Active IV ASDIRECTED Furosemide [Lasix] Med 03/03/19 09:00 Active 20 mg IVPUSH DAILY Furosemide [Lasix] Med 03/03/19 15:00 Once 20 mg IVPUSH ONETIME ONE Pantoprazole [ProTONIX IV] Med 03/02/19 14:45 Active 40 mg IVPUSH DAILY Medication Orders Acetaminophen (Tylenol) 975 mg PO Q6H PRN PRN Reason: Pain (moderate 4-6) Last Admin: 03/02/19 17:38 Dose: 975 mg Admin: 03/02/19 08:40 Dose: 975 mg Admin: 03/01/19 14:47 Dose: 975 mg Admin: 03/01/19 01:02 Dose: 975 mg Admin: 02/28/19 16:18 Dose: 975 mg Acetaminophen/Butalbital/Caffeine (Fioricet 325-50-40 Mg) 1 tab PO Q4H PRN PRN Reason: Headache Last Admin: 03/03/19 10:27 Dose: 1 tab Amiodarone HCl (Cordarone) 200 mg PO DAILY [facility] Last Admin: 03/03/19 08:57 Dose: 200 mg Admin: 03/02/19 08:33 Dose: 200 mg Admin: 03/01/19 09:48 Dose: 200 mg Calcium Carbonate/Glycine (Tums) 1,000 mg PO Q2HR PRN PRN Reason: Indigestion Last Admin: 03/02/19 21:15 Dose: 1,000 mg Admin: 03/02/19 14:43 Dose: 1,000 mg Enoxaparin Sodium (Lovenox) 120 mg SUBCUT Q12H [facility] Last Admin: 03/03/19 05:29 Dose: 120 mg Admin: 03/02/19 17:32 Dose: 120 mg Admin: 03/02/19 05:19 Dose: 120 mg Admin: 03/01/19 17:03 Dose: 120 mg Admin: 03/01/19 06:52 Dose: 120 mg Admin: 02/28/19 18:25 Dose: 120 mg Furosemide (Lasix) 20 mg IVPUSH DAILY [facility] Last Admin: 03/03/19 08:57 Dose: 20 mg Furosemide (Lasix) 20 mg IVPUSH ONETIME ONE Stop: 03/03/19 15:01 Piperacillin Sod/Tazobactam (Sod 4.5 gm/ Sodium Chloride) 100 mls @ 25 mls/hr IV Q8H [facility] Last Admin: 03/03/19 08:57 Dose: 25 mls/hr Infusion: 03/03/19 04:49 Dose: 25 mls/hr Admin: 03/03/19 00:49 Dose: 25 mls/hr Infusion: 03/02/19 21:30 Dose: 25 mls/hr Admin: 03/02/19 17:30 Dose: 25 mls/hr Infusion: 03/02/19 12:31 Dose: 25 mls/hr Admin: 03/02/19 08:31 Dose: 25 mls/hr Infusion: 03/02/19 04:48 Dose: 25 mls/hr Admin: 03/02/19 00:48 Dose: 25 mls/hr Infusion: 03/01/19 20:58 Dose: 25 mls/hr Admin: 03/01/19 16:58 Dose: 25 mls/hr Infusion: 03/01/19 13:48 Dose: 25 mls/hr Admin: 03/01/19 09:48 Dose: 25 mls/hr Infusion: 03/01/19 05:00 Dose: 25 mls/hr Admin: 03/01/19 01:00 Dose: 25 mls/hr Infusion: 02/28/19 20:02 Dose: 25 mls/hr Admin: 02/28/19 16:02 Dose: 25 mls/hr Dextrose/Sodium Chloride (Dextrose 5%-1/2 Ns) 1,000 mls @ 50 mls/hr IV ASDIRECTED [facility] Ketorolac Tromethamine (Toradol) 30 mg IVPUSH Q6H PRN PRN Reason: Pain (moderate 4-6) Last Admin: 03/03/19 00:59 Dose: 30 mg Losartan Potassium (Cozaar) 25 mg PO DAILY [facility] Last Admin: 03/03/19 08:57 Dose: 25 mg Admin: 03/02/19 08:32 Dose: 25 mg Admin: 03/01/19 10:17 Dose: Not Given Metoprolol Succinate (Toprol Xl) 50 mg PO BEDTIME [facility] Last Admin: 03/02/19 21:06 Dose: 50 mg Admin: 03/01/19 20:35 Dose: 50 mg Ondansetron HCl (Zofran) 4 mg IVPUSH Q6H PRN PRN Reason: Nausea Last Admin: 03/03/19 09:22 Dose: 4 mg Admin: 03/02/19 14:38 Dose: 4 mg Admin: 03/01/19 12:19 Dose: 4 mg Pantoprazole Sodium (Protonix Iv) 40 mg IVPUSH DAILY [facility] Last Admin: 03/03/19 08:57 Dose: 40 mg Admin: 03/02/19 14:43 Dose: 40 mg Sodium Chloride (Saline Flush) 10 ml FLUSH ASDIRECTED PRN PRN Reason: Keep Vein Open Last Admin: 02/27/19 22:23 Dose: 10 ml - Assessment Assessment (Free Text/Narrative):: Has minimal emesis overnight and had a BM and flatus this AM. Nausea has resolved. Vitals and labs continue to be normal. I believe the patient is progressing well. - Plan Plan (Free Text/Narrative):: - start CLD today and advance to soft foods as tolerated. Stop IVF if tolerating oral intake. - Switch to PO abx (probably Levo/flagyl) if patient is tolerating Po diet. Total abx duration is 14 days (from inpatient to outpatient) - If patient tolerated PO diet and PO antibiotics, can be discharged as early as tomorrow - patient will follow up with me in 2-3 weeks for check and will need a colonoscopy in 6-8 weeks after discharge - Will need to be on low residue diet until symptoms resolve completely - Will consult dietary to talk to him.
[2019-03-03] MEDS ORDERED: Furosemide 20 MG/2 ML VIAL IVPUSH ONE (15:00)
[2019-03-03] MEDS: Metoprolol Succinate 50 MG Tab.ER PO SCH (20:03)
[2019-03-04] MEDS: Piperacillin/Tazobactam 4.5 GM in Sodium Chloride 0.9% 100 ML IV SCH ×2 (00:21→08:20)
[2019-03-04] MEDS: Enoxaparin 120 MG/0.8 ML Syringe SUBCUT SCH (06:06)
[2019-03-04] MEDS: Losartan 25 MG Tab PO SCH (08:02)
[2019-03-04] MEDS: Furosemide 20 MG/2 ML VIAL IVPUSH SCH (08:04)
[2019-03-04] MEDS: Pantoprazole 40 MG Vial IVPUSH SCH (08:10)
[2019-03-04] MEDS ORDERED: Amiodarone 200 MG Tab PO SCH (09:00)
--- NOTE | 2019-03-04 09:01 | PCM.SURGPN ---
- General Info Date of Service: 03/04/19 Admission Diagnosis/Problem: Diverticulitis Functional Status: Reports: Pain Controlled, Tolerating Diet, Ambulating Pain Score: 2 - Review of Systems General: Reports: No Symptoms HEENT: Reports: No Symptoms Pulmonary: Reports: No Symptoms Cardiovascular: Reports: No Symptoms Gastrointestinal: Reports: Abdominal Pain Genitourinary: Reports: No Symptoms Musculoskeletal: Reports: No Symptoms Skin: Reports: No Symptoms Neurological: Reports: No Symptoms - Patient Data Vitals - Most Recent: Last Vital Signs Temp 98.6 F 03/04/19 07:59 Pulse 50 L 03/04/19 07:59 Resp 14 03/04/19 08:17 BP 117/68 03/04/19 08:02 Pulse Ox 91 L 03/04/19 07:59 Weight - Most Recent: 126.189 kg I&O - Last 24 Hours: Intake & Output 03/03/19 03/04/19 03/04/19 22:59 06:59 14:59 Intake Total 4114 1950 Output Total 1925 3135 Balance 2189 -1185 Lab Results Last 24 Hrs: Laboratory Results - last 24 hr 03/04/19 03/04/19 Range/Units 05:07 05:07 WBC 4.60 (4.23-9.07) K/mm3 RBC 4.05 L (4.63-6.08) M/mm3 Hgb 12.4 L (13.7-17.5) gm/dl Hct 38.9 L (40.1-51.0) % MCV 96.0 H (79.0-92.2) fl MCH 30.6 (25.7-32.2) pg MCHC 31.9 L (32.2-35.5) g/dl RDW Std Deviation 43.8 (35.1-43.9) fL Plt Count 164 (163-337) K/mm3 MPV 11.1 (9.4-12.3) fl Neut % (Auto) 65.8 (34.0-67.9) % Lymph % (Auto) 15.2 L (21.8-53.1) % Irwin % (Auto) 14.1 H (5.3-12.2) % Eos % (Auto) 4.1 (0.8-7.0) Baso % (Auto) 0.4 (0.1-1.2) % Neut # (Auto) 3.02 (1.78-5.38) K/mm3 Lymph # (Auto) 0.70 L (1.32-3.57) K/mm3 Irwin # (Auto) 0.65 (0.30-0.82) K/mm3 Eos # (Auto) 0.19 (0.04-0.54) K/mm3 Baso # (Auto) 0.02 (0.01-0.08) K/mm3 Sodium 141 (136-145) mEq/L Potassium 3.4 L (3.5-5.1) mEq/L Chloride 105 (98-107) mEq/L Carbon Dioxide 28 (21-32) mEq/L Anion Gap 11.4 (5-15) BUN 5 L (7-18) mg/dL Creatinine 1.0 (0.7-1.3) mg/dL Est Cr Clr Drug Dosing 81.11 mL/min Estimated GFR (MDRD) > 60 (>60) mL/min BUN/Creatinine Ratio 5.0 L (14-18) Glucose 112 H (74-106) mg/dL Calcium 9.3 (8.5-10.1) mg/dL Magnesium 1.7 L (1.8-2.4) mg/dl Total Bilirubin 0.7 (0.2-1.0) mg/dL AST 42 H (15-37) U/L ALT 39 (16-63) U/L Alkaline Phosphatase 37 L (46-116) U/L Total Protein 5.9 L (6.4-8.2) g/dl Albumin 2.6 L (3.4-5.0) g/dl Globulin 3.3 gm/dL Albumin/Globulin Ratio 0.8 L (1-2) Med Orders - Current: Current Medications Acetaminophen (Tylenol) 975 mg PO Q6H PRN PRN Reason: Pain (moderate 4-6) Last Admin: 03/02/19 17:38 Dose: 975 mg Acetaminophen/Butalbital/Caffeine (Fioricet 325-50-40 Mg) 1 tab PO Q4H PRN PRN Reason: Headache Last Admin: 03/03/19 10:27 Dose: 1 tab Amiodarone HCl (Cordarone) 100 mg PO DAILY RADHA Last Admin: 03/04/19 08:01 Dose: 100 mg Calcium Carbonate/Glycine (Tums) 1,000 mg PO Q2HR PRN PRN Reason: Indigestion Last Admin: 03/02/19 21:15 Dose: 1,000 mg Enoxaparin Sodium (Lovenox) 120 mg SUBCUT Q12H [facility] Last Admin: 03/04/19 06:06 Dose: 120 mg Furosemide (Lasix) 20 mg IVPUSH DAILY [facility] Last Admin: 03/04/19 08:04 Dose: 20 mg Piperacillin Sod/Tazobactam (Sod 4.5 gm/ Sodium Chloride) 100 mls @ 25 mls/hr IV Q8H [facility] Last Admin: 03/04/19 08:20 Dose: 25 mls/hr Dextrose/Sodium Chloride (Dextrose 5%-1/2 Ns) 1,000 mls @ 50 mls/hr IV ASDIRECTED [facility] Last Admin: 03/04/19 00:21 Dose: 50 mls/hr Ketorolac Tromethamine (Toradol) 30 mg IVPUSH Q6H PRN PRN Reason: Pain (moderate 4-6) Last Admin: 03/03/19 00:59 Dose: 30 mg Losartan Potassium (Cozaar) 25 mg PO DAILY [facility] Last Admin: 03/04/19 08:02 Dose: 25 mg Metoprolol Succinate (Toprol Xl) 50 mg PO BEDTIME [facility] Last Admin: 03/03/19 20:03 Dose: 50 mg Ondansetron HCl (Zofran) 4 mg IVPUSH Q6H PRN PRN Reason: Nausea Last Admin: 03/03/19 09:22 Dose: 4 mg Pantoprazole Sodium (Protonix Iv) 40 mg IVPUSH DAILY [facility] Last Admin: 03/04/19 08:10 Dose: 40 mg Sodium Chloride (Saline Flush) 10 ml FLUSH ASDIRECTED PRN PRN Reason: Keep Vein Open Last Admin: 02/27/19 22:23 Dose: 10 ml Discontinued Medications Acetaminophen (Tylenol) 1,000 mg PO Q6HR PRN PRN Reason: Pain (moderate 4-6) Amiodarone HCl (Cordarone) 200 mg PO DAILY [facility] Last Admin: 03/03/19 08:57 Dose: 200 mg Diatrizoate Meglum/Diatrizoate Sod (Gastrografin 37%) 90 ml PO ONETIME ONE Stop: 02/27/19 22:58 Last Admin: 02/27/19 23:55 Dose: 90 ml Diatrizoate Meglum/Diatrizoate Sod (Gastrografin 37%) 90 ml PO ONETIME ONE Stop: 02/27/19 23:59 Last Admin: 02/28/19 09:25 Dose: Not Given Furosemide (Lasix) 20 mg PO DAILY RADHA Last Admin: 03/02/19 08:32 Dose: 20 mg Furosemide (Lasix) 20 mg IVPUSH ONETIME ONE Stop: 03/02/19 09:40 Last Admin: 03/02/19 10:46 Dose: 20 mg Furosemide (Lasix) 20 mg IVPUSH ONETIME ONE Stop: 03/03/19 15:01 Last Admin: 03/03/19 15:03 Dose: 20 mg Hydromorphone HCl (Dilaudid) 0.5 mg IVPUSH ONETIME ONE Stop: 02/27/19 22:12 Last Admin: 02/27/19 22:22 Dose: 0.5 mg Hydromorphone HCl (Dilaudid) 0.5 mg IVPUSH ONETIME ONE Stop: 02/28/19 00:55 Last Admin: 02/28/19 01:03 Dose: 0.5 mg Hydromorphone HCl (Dilaudid) 0.5 mg IVPUSH Q2H PRN PRN Reason: Pain Last Admin: 03/01/19 23:17 Dose: 0.5 mg Sodium Chloride (Normal Saline) 1,000 mls @ 1,000 mls/hr IV .BOLUS STA Stop: 02/27/19 23:09 Last Admin: 02/27/19 22:21 Dose: 1,000 mls/hr Ceftriaxone Sodium 1 gm/ (Sodium Chloride) 100 mls @ 200 mls/hr IV ONETIME ONE Stop: 02/28/19 01:08 Last Admin: 02/28/19 00:47 Dose: 200 mls/hr Metronidazole 500 mg/ Premix 100 mls @ 100 mls/hr IV ONETIME ONE Stop: 02/28/19 01:38 Last Admin: 02/28/19 00:48 Dose: 100 mls/hr Ceftriaxone Sodium 1 gm/ (Sodium Chloride) 100 mls @ 200 mls/hr IV Q24H RADHA Metronidazole 500 mg/ Premix 100 mls @ 100 mls/hr IV Q8H [facility] Last Admin: 03/01/19 14:01 Dose: Not Given Dextrose/Sodium Chloride (Dextrose 5%-Normal Saline) 1,000 mls @ 100 mls/hr IV ASDIRECTED [facility] Last Infusion: 03/01/19 15:52 Dose: Infused Piperacillin Sod/Tazobactam (Sod 4.5 gm/ Sodium Chloride) 100 mls @ 200 mls/hr IV ONETIME ONE Stop: 02/28/19 09:29 Last Admin: 02/28/19 09:32 Dose: 200 mls/hr Sodium Chloride (Normal Saline) 500 mls @ 999 mls/hr IV .BOLUS ONE Stop: 03/01/19 10:46 Last Admin: 03/01/19 10:36 Dose: 999 mls/hr Dextrose/Sodium Chloride (Dextrose 5%-1/2 Ns) 1,000 mls @ 125 mls/hr IV ASDIRECTED [facility] Last Admin: 03/03/19 00:53 Dose: 125 mls/hr Magnesium Sulfate 2 gm/ Premix 50 mls @ 25 mls/hr IV ONETIME ONE Stop: 03/02/19 10:59 Last Admin: 03/02/19 10:40 Dose: 25 mls/hr Potassium Chloride 10 meq/ (Premix) 100 mls @ 100 mls/hr IV Q1H RADHA Stop: 03/02/19 10:59 Last Admin: 03/02/19 12:22 Dose: 100 mls/hr Potassium Chloride 10 meq/ (Premix) 100 mls @ 100 mls/hr IV Q1H RADHA Stop: 03/03/19 12:29 Last Admin: 03/03/19 12:12 Dose: 100 mls/hr Dextrose/Sodium Chloride (Dextrose 5%-1/2 Ns) 1,000 mls @ 100 mls/hr IV ASDIRECTED [facility] Last Admin: 03/03/19 09:21 Dose: 100 mls/hr Iopamidol (Isovue-300 (61%)) 100 ml IVPUSH ONETIME ONE Stop: 02/27/19 22:58 Last Admin: 02/28/19 00:04 Dose: 100 ml Iopamidol (Isovue-300 (61%)) 100 ml IVPUSH ONETIME ONE Stop: 02/27/19 23:59 Last Admin: 02/28/19 09:25 Dose: Not Given Metoprolol Succinate (Toprol Xl) 50 mg PO BID RADHA Last Admin: 03/01/19 10:18 Dose: Not Given Ondansetron HCl (Zofran) 4 mg IVPUSH ONETIME ONE Stop: 02/27/19 22:11 Last Admin: 02/27/19 22:21 Dose: 4 mg - Exam Wound/Incisions: Healing Well General: Alert, Oriented, Cooperative, No Acute Distress Cardiovascular: Regular Rate, Regular Rhythm GI/Abdominal Exam: Soft, Non-Tender, No Distention, No Mass - Problem List Review Problem List Initiated/Reviewed/Updated: No - My Orders Last 24 Hours: Active Orders 24 hr Category Date Time Status Consult to Director Of Convention Services [CONS] Routine Cons 03/03/19 11:08 Active Regular Diet [DIET] Diet 03/04/19 Breakfast Active CBC WITH AUTO DIFF [HEME] AM Lab 03/05/19 05:11 Ordered CMP [COMPREHENSIVE METABOLIC PN,CMP] [CHEM] AM Lab 03/05/19 05:11 Ordered MAGNESIUM [CHEM] AM Lab 03/05/19 05:11 Ordered Acetaminophen/Butalbital/Caff [Fioricet 325-50-40 MG] Med 03/03/19 10:02 Active 1 tab PO Q4H PRN Amiodarone [Cordarone] Med 03/04/19 09:00 Active 100 mg PO DAILY Dextrose 5%-0.45% NaCl [Dextrose 5%-1/2 NS] 1,000 ml Med 03/03/19 13:15 Active IV ASDIRECTED Furosemide [Lasix] Med 03/03/19 09:00 Active 20 mg IVPUSH DAILY Medication Orders Acetaminophen (Tylenol) 975 mg PO Q6H PRN PRN Reason: Pain (moderate 4-6) Last Admin: 03/02/19 17:38 Dose: 975 mg Admin: 03/02/19 08:40 Dose: 975 mg Admin: 03/01/19 14:47 Dose: 975 mg Admin: 03/01/19 01:02 Dose: 975 mg Admin: 02/28/19 16:18 Dose: 975 mg Acetaminophen/Butalbital/Caffeine (Fioricet 325-50-40 Mg) 1 tab PO Q4H PRN PRN Reason: Headache Last Admin: 03/03/19 10:27 Dose: 1 tab Amiodarone HCl (Cordarone) 100 mg PO DAILY [facility] Last Admin: 03/04/19 08:01 Dose: 100 mg Calcium Carbonate/Glycine (Tums) 1,000 mg PO Q2HR PRN PRN Reason: Indigestion Last Admin: 03/02/19 21:15 Dose: 1,000 mg Admin: 03/02/19 14:43 Dose: 1,000 mg Enoxaparin Sodium (Lovenox) 120 mg SUBCUT Q12H [facility] Last Admin: 03/04/19 06:06 Dose: 120 mg Admin: 03/03/19 17:41 Dose: 120 mg Admin: 03/03/19 05:29 Dose: 120 mg Admin: 03/02/19 17:32 Dose: 120 mg Admin: 03/02/19 05:19 Dose: 120 mg Admin: 03/01/19 17:03 Dose: 120 mg Admin: 03/01/19 06:52 Dose: 120 mg Admin: 02/28/19 18:25 Dose: 120 mg Furosemide (Lasix) 20 mg IVPUSH DAILY [facility] Last Admin: 03/04/19 08:04 Dose: 20 mg Admin: 03/03/19 08:57 Dose: 20 mg Piperacillin Sod/Tazobactam (Sod 4.5 gm/ Sodium Chloride) 100 mls @ 25 mls/hr IV Q8H [facility] Last Admin: 03/04/19 08:20 Dose: 25 mls/hr Infusion: 03/04/19 04:21 Dose: 25 mls/hr Admin: 03/04/19 00:21 Dose: 25 mls/hr Infusion: 03/03/19 21:40 Dose: 25 mls/hr Admin: 03/03/19 17:40 Dose: 25 mls/hr Infusion: 03/03/19 12:57 Dose: 25 mls/hr Admin: 03/03/19 08:57 Dose: 25 mls/hr Infusion: 03/03/19 04:49 Dose: 25 mls/hr Admin: 03/03/19 00:49 Dose: 25 mls/hr Infusion: 03/02/19 21:30 Dose: 25 mls/hr Admin: 03/02/19 17:30 Dose: 25 mls/hr Infusion: 03/02/19 12:31 Dose: 25 mls/hr Admin: 03/02/19 08:31 Dose: 25 mls/hr Infusion: 03/02/19 04:48 Dose: 25 mls/hr Admin: 03/02/19 00:48 Dose: 25 mls/hr Infusion: 03/01/19 20:58 Dose: 25 mls/hr Admin: 03/01/19 16:58 Dose: 25 mls/hr Infusion: 03/01/19 13:48 Dose: 25 mls/hr Admin: 03/01/19 09:48 Dose: 25 mls/hr Infusion: 03/01/19 05:00 Dose: 25 mls/hr Admin: 03/01/19 01:00 Dose: 25 mls/hr Infusion: 02/28/19 20:02 Dose: 25 mls/hr Admin: 02/28/19 16:02 Dose: 25 mls/hr Dextrose/Sodium Chloride (Dextrose 5%-1/2 Ns) 1,000 mls @ 50 mls/hr IV ASDIRECTED [facility] Last Admin: 03/04/19 00:21 Dose: 50 mls/hr Ketorolac Tromethamine (Toradol) 30 mg IVPUSH Q6H PRN PRN Reason: Pain (moderate 4-6) Last Admin: 03/03/19 00:59 Dose: 30 mg Losartan Potassium (Cozaar) 25 mg PO DAILY [facility] Last Admin: 03/04/19 08:02 Dose: 25 mg Admin: 03/03/19 08:57 Dose: 25 mg Admin: 03/02/19 08:32 Dose: 25 mg Admin: 03/01/19 10:17 Dose: Not Given Metoprolol Succinate (Toprol Xl) 50 mg PO BEDTIME [facility] Last Admin: 03/03/19 20:03 Dose: 50 mg Admin: 03/02/19 21:06 Dose: 50 mg Admin: 03/01/19 20:35 Dose: 50 mg Ondansetron HCl (Zofran) 4 mg IVPUSH Q6H PRN PRN Reason: Nausea Last Admin: 03/03/19 09:22 Dose: 4 mg Admin: 03/02/19 14:38 Dose: 4 mg Admin: 03/01/19 12:19 Dose: 4 mg Pantoprazole Sodium (Protonix Iv) 40 mg IVPUSH DAILY [facility] Last Admin: 03/04/19 08:10 Dose: 40 mg Admin: 03/03/19 08:57 Dose: 40 mg Admin: 03/02/19 14:43 Dose: 40 mg Sodium Chloride (Saline Flush) 10 ml FLUSH ASDIRECTED PRN PRN Reason: Keep Vein Open Last Admin: 02/27/19 22:23 Dose: 10 ml - Plan Plan (Free Text/Narrative):: Had a little pain overnight but it resolved with passing flatus. Tolerated FLD and is passing flatus and stool. - switch to PO meds and PO abx - soft diet today - dc IVF - can go home today if tolerating diet - follow up with me in 2 weeks
[2019-03-04] MEDS ORDERED: Magnesium Sulfate/Water 2 GM in Premix Bag 1 BAG IV ONE (09:15)
[2019-03-04] MEDS ORDERED: Potassium Chloride 10 MEQ in Premix Bag 1 BAG IV SCH (09:15)
[2019-03-04] MEDS ORDERED: Magnesium Oxide 400 MG Tab PO ONE (09:35)
[2019-03-04] MEDS ORDERED: Potassium Chloride 20 MEQ Tab.ER PO SCH (09:45)
[2019-03-04] MEDS: Potassium Chloride 20 MEQ Tab.ER PO SCH ×2 (09:46→13:33)
--- NOTE | 2019-03-04 13:18 | PCM.DCSUM1 ---
Discharge Summary - Hospital Course HPI Initial Comments: 58-year-old male that started having abdominal pain approximately 2 days. He developed pain in the lower abdomen with cramps and diarrhea. He denies any fever or chills. Denies any chest pain or shortness of breath. He's had no hematochezia, nausea, or vomiting. When he presented to the emergency room a CT scan revealed diverticulitis with microperforation, but without abscess. Surgery was consultative and recommended starting antibiotics and admission for close follow-up. Patient is on Eliquis secondary to history of atrial fibrillation. He had cardioversion and went into normal sinus rhythm. He has a history of congestive heart failure with reduced ejection fraction several years ago that has recovered with medical management. Diagnosis: Stroke: No - Discharge Data Discharge Date: 03/04/19 Discharge Disposition: Home, Self-Care 01 Condition: Good - Referral to Home Health Primary Care Physician: Pratik Lopez DO - Patient Summary/Data Consults: Consultations 02/28/19 01:27 Consult to Physician [CONS] Routine 03/03/19 11:08 Consult to Hose Builder [CONS] Routine Hospital Course: Patient was admitted with diverticulitis with microperforation. Consultation by Dr. Light and surgery was obtained. Patient was started on Zosyn and kept nothing by mouth. Over the next 2 days patient's diet was advanced and he generally did well. Of note he was found to have significant sinus bradycardia with rates as low as the mid 40s. Metoprolol succinate was decreased from 50 mg twice a day to once a day. Also, amiodarone was decreased from 200 mg to 100 mg. I discussed the patient that the half-life of amiodarone is from 1-3 months so he will need to discuss these changes within the next 2 weeks with his physician practice coordinator. He will also need to follow-up with Dr. Light in 2-3 weeks. - Patient Instructions Diet: Heart Healthy Diet Driving: May Drive Today Showering/Bathing: May Shower Other/Special Instructions: Your amiodarone and metoprolol were decreased during this visit because of significant bradycardia, low heart rate into the 40s. Because of these changes please be seen by your physician practice coordinator within the next 2 weeks. Amiodarone was changed to 100 mg a day. Metoprolol succinate was changed to 50 mg a day. Augmentin 875 mg 1 tablet twice a day was also prescribed for your diverticulitis. Follow-up with Dr. Light in 2-3 weeks. - Discharge Plan *PRESCRIPTION DRUG MONITORING PROGRAM REVIEWED*: No *COPY OF PRESCRIPTION DRUG MONITORING REPORT IN PATIENT KENDRA: No Prescriptions/Med Rec: Amoxicillin/Clavulanate K [Augmentin 875-125 MG] 1 tab PO Q12HR #16 tablet Amiodarone [Cordarone] 100 mg PO DAILY 30 Days #15 tablet Metoprolol Succinate [Toprol XL 50mg] 50 mg PO BEDTIME #30 tab.er Home Medications: Home Meds Apixaban [Eliquis] 5 mg PO BID 02/28/19 [History] Furosemide 20 mg PO DAILY 02/28/19 [History] Losartan [Cozaar] 25 mg PO DAILY 02/28/19 [History] Amiodarone [Cordarone] 100 mg PO DAILY 30 Days #15 tablet 03/04/19 [Rx] Amoxicillin/Clavulanate K [Augmentin 875-125 MG] 1 tab PO Q12HR #16 tablet 03/04 [Rx] Metoprolol Succinate [Toprol XL 50mg] 50 mg PO BEDTIME #30 tab.er 03/04/19 [Rx] Patient Handouts: Diverticulitis, Atrial Fibrillation Forms: ED Department Discharge Referrals: PCP,None [Ordering Only Provider] - - Discharge Summary/Plan Comment DC Time >30 min.: Yes Discharge Summary/Plan Comment: Discharge home. Follow up with Dr. Light in 2-3 weeks. Take Augmentin 875 mg twice a day for 8 days. Decrease Amiodarone to 100 mg daily. Decrease metoprolol succinate to 50 mg daily. Follow up with your physician practice coordinator in the next 2 weeks to discuss changes. If symptoms worsen return to Emergency Department. - General Info Date of Service: 03/04/19 Admission Dx/Problem (Free Text: Admission Diagnosis/Problem Admission Diagnosis/Problem Diverticulitis of colon with perforation Subjective Update: Brooke is having some mild abdominal cramping, but tolerating regular diet. Functional Status: Reports: Pain Controlled - Review of Systems General: Reports: No Symptoms HEENT: Reports: No Symptoms Pulmonary: Reports: No Symptoms Cardiovascular: Reports: No Symptoms Gastrointestinal: Reports: No Symptoms - Patient Data Vitals - Most Recent: Last Vital Signs Temp 98.6 F 03/04/19 07:59 Pulse 50 L 03/04/19 07:59 Resp 14 03/04/19 08:17 BP 117/68 03/04/19 08:02 Pulse Ox 91 L 03/04/19 07:59 Weight - Most Recent: 278 lb 3.2 oz I&O - Last 24 hours: Intake & Output 03/03/19 03/04/19 03/04/19 22:59 06:59 14:59 Intake Total 4114 1950 360 Output Total 2670 8065 Balance 2189 -1185 360 Lab Results - Last 24 hrs: Laboratory Results - last 24 hr 03/04/19 03/04/19 Range/Units 05:07 05:07 WBC 4.60 (4.23-9.07) K/mm3 RBC 4.05 L (4.63-6.08) M/mm3 Hgb 12.4 L (13.7-17.5) gm/dl Hct 38.9 L (40.1-51.0) % MCV 96.0 H (79.0-92.2) fl MCH 30.6 (25.7-32.2) pg MCHC 31.9 L (32.2-35.5) g/dl RDW Std Deviation 43.8 (35.1-43.9) fL Plt Count 164 (163-337) K/mm3 MPV 11.1 (9.4-12.3) fl Neut % (Auto) 65.8 (34.0-67.9) % Lymph % (Auto) 15.2 L (21.8-53.1) % [place] % (Auto) 14.1 H (5.3-12.2) % Eos % (Auto) 4.1 (0.8-7.0) Baso % (Auto) 0.4 (0.1-1.2) % Neut # (Auto) 3.02 (1.78-5.38) K/mm3 Lymph # (Auto) 0.70 L (1.32-3.57) K/mm3 [place] # (Auto) 0.65 (0.30-0.82) K/mm3 Eos # (Auto) 0.19 (0.04-0.54) K/mm3 Baso # (Auto) 0.02 (0.01-0.08) K/mm3 Sodium 141 (136-145) mEq/L Potassium 3.4 L (3.5-5.1) mEq/L Chloride 105 (98-107) mEq/L Carbon Dioxide 28 (21-32) mEq/L Anion Gap 11.4 (5-15) BUN 5 L (7-18) mg/dL Creatinine 1.0 (0.7-1.3) mg/dL Est Cr Clr Drug Dosing 81.11 mL/min Estimated GFR (MDRD) > 60 (>60) mL/min BUN/Creatinine Ratio 5.0 L (14-18) Glucose 112 H (74-106) mg/dL Calcium 9.3 (8.5-10.1) mg/dL Magnesium 1.7 L (1.8-2.4) mg/dl Total Bilirubin 0.7 (0.2-1.0) mg/dL AST 42 H (15-37) U/L ALT 39 (16-63) U/L Alkaline Phosphatase 37 L (46-116) U/L Total Protein 5.9 L (6.4-8.2) g/dl Albumin 2.6 L (3.4-5.0) g/dl Globulin 3.3 gm/dL Albumin/Globulin Ratio 0.8 L (1-2) Med Orders - Current: Current Medications Acetaminophen (Tylenol) 975 mg PO Q6H PRN PRN Reason: Pain (moderate 4-6) Last Admin: 03/02/19 17:38 Dose: 975 mg Acetaminophen/Butalbital/Caffeine (Fioricet 325-50-40 Mg) 1 tab PO Q4H PRN PRN Reason: Headache Last Admin: 03/03/19 10:27 Dose: 1 tab Amiodarone HCl (Cordarone) 100 mg PO DAILY [facility] Amoxicillin/Clavulanate Potassium (Augmentin 875 Mg/125 Mg) 1 tab PO Q12HR [facility] Calcium Carbonate/Glycine (Tums) 1,000 mg PO Q2HR PRN PRN Reason: Indigestion Last Admin: 03/02/19 21:15 Dose: 1,000 mg Enoxaparin Sodium (Lovenox) 120 mg SUBCUT Q12H [facility] Last Admin: 03/04/19 06:06 Dose: 120 mg Furosemide (Lasix) 20 mg IVPUSH DAILY [facility] Last Admin: 03/04/19 08:04 Dose: 20 mg Dextrose/Sodium Chloride (Dextrose 5%-1/2 Ns) 1,000 mls @ 50 mls/hr IV ASDIRECTED [facility] Last Admin: 03/04/19 00:21 Dose: 50 mls/hr Ketorolac Tromethamine (Toradol) 30 mg IVPUSH Q6H PRN PRN Reason: Pain (moderate 4-6) Last Admin: 03/03/19 00:59 Dose: 30 mg Losartan Potassium (Cozaar) 25 mg PO DAILY [facility] Last Admin: 03/04/19 08:02 Dose: 25 mg Metoprolol Succinate (Toprol Xl) 50 mg PO BEDTIME [facility] Last Admin: 03/03/19 20:03 Dose: 50 mg Ondansetron HCl (Zofran) 4 mg IVPUSH Q6H PRN PRN Reason: Nausea Last Admin: 03/03/19 09:22 Dose: 4 mg Pantoprazole Sodium (Protonix Iv) 40 mg IVPUSH DAILY [facility] Last Admin: 03/04/19 08:10 Dose: 40 mg Potassium Chloride (Klor-Con M20) 40 meq PO Q4H [facility] Stop: 03/04/19 13:39 Last Admin: 03/04/19 09:46 Dose: 40 meq Sodium Chloride (Saline Flush) 10 ml FLUSH ASDIRECTED PRN PRN Reason: Keep Vein Open Last Admin: 02/27/19 22:23 Dose: 10 ml Discontinued Medications Acetaminophen (Tylenol) 1,000 mg PO Q6HR PRN PRN Reason: Pain (moderate 4-6) Amiodarone HCl (Cordarone) 200 mg PO DAILY [facility] Last Admin: 03/03/19 08:57 Dose: 200 mg Amiodarone HCl (Cordarone) 100 mg PO DAILY [facility] Last Admin: 03/04/19 08:01 Dose: 100 mg Amiodarone HCl (Cordarone) 150 mg PO DAILY [facility] Diatrizoate Meglum/Diatrizoate Sod (Gastrografin 37%) 90 ml PO ONETIME ONE Stop: 02/27/19 22:58 Last Admin: 02/27/19 23:55 Dose: 90 ml Diatrizoate Meglum/Diatrizoate Sod (Gastrografin 37%) 90 ml PO ONETIME ONE Stop: 02/27/19 23:59 Last Admin: 02/28/19 09:25 Dose: Not Given Furosemide (Lasix) 20 mg PO DAILY [facility] Last Admin: 03/02/19 08:32 Dose: 20 mg Furosemide (Lasix) 20 mg IVPUSH ONETIME ONE Stop: 03/02/19 09:40 Last Admin: 03/02/19 10:46 Dose: 20 mg Furosemide (Lasix) 20 mg IVPUSH ONETIME ONE Stop: 03/03/19 15:01 Last Admin: 03/03/19 15:03 Dose: 20 mg Hydromorphone HCl (Dilaudid) 0.5 mg IVPUSH ONETIME ONE Stop: 02/27/19 22:12 Last Admin: 02/27/19 22:22 Dose: 0.5 mg Hydromorphone HCl (Dilaudid) 0.5 mg IVPUSH ONETIME ONE Stop: 02/28/19 00:55 Last Admin: 02/28/19 01:03 Dose: 0.5 mg Hydromorphone HCl (Dilaudid) 0.5 mg IVPUSH Q2H PRN PRN Reason: Pain Last Admin: 03/01/19 23:17 Dose: 0.5 mg Sodium Chloride (Normal Saline) 1,000 mls @ 1,000 mls/hr IV .BOLUS STA Stop: 02/27/19 23:09 Last Admin: 02/27/19 22:21 Dose: 1,000 mls/hr Ceftriaxone Sodium 1 gm/ (Sodium Chloride) 100 mls @ 200 mls/hr IV ONETIME ONE Stop: 02/28/19 01:08 Last Admin: 02/28/19 00:47 Dose: 200 mls/hr Metronidazole 500 mg/ Premix 100 mls @ 100 mls/hr IV ONETIME ONE Stop: 02/28/19 01:38 Last Admin: 02/28/19 00:48 Dose: 100 mls/hr Ceftriaxone Sodium 1 gm/ (Sodium Chloride) 100 mls @ 200 mls/hr IV Q24H [facility] Metronidazole 500 mg/ Premix 100 mls @ 100 mls/hr IV Q8H [facility] Last Admin: 03/01/19 14:01 Dose: Not Given Dextrose/Sodium Chloride (Dextrose 5%-Normal Saline) 1,000 mls @ 100 mls/hr IV ASDIRECTED [facility] Last Infusion: 03/01/19 15:52 Dose: Infused Piperacillin Sod/Tazobactam (Sod 4.5 gm/ Sodium Chloride) 100 mls @ 25 mls/hr IV Q8H [facility] Last Admin: 03/04/19 08:20 Dose: 25 mls/hr Piperacillin Sod/Tazobactam (Sod 4.5 gm/ Sodium Chloride) 100 mls @ 200 mls/hr IV ONETIME ONE Stop: 02/28/19 09:29 Last Admin: 02/28/19 09:32 Dose: 200 mls/hr Sodium Chloride (Normal Saline) 500 mls @ 999 mls/hr IV .BOLUS ONE Stop: 03/01/19 10:46 Last Admin: 03/01/19 10:36 Dose: 999 mls/hr Dextrose/Sodium Chloride (Dextrose 5%-1/2 Ns) 1,000 mls @ 125 mls/hr IV ASDIRECTED [facility] Last Admin: 03/03/19 00:53 Dose: 125 mls/hr Magnesium Sulfate 2 gm/ Premix 50 mls @ 25 mls/hr IV ONETIME ONE Stop: 03/02/19 10:59 Last Admin: 03/02/19 10:40 Dose: 25 mls/hr Potassium Chloride 10 meq/ (Premix) 100 mls @ 100 mls/hr IV Q1H [facility] Stop: 03/02/19 10:59 Last Admin: 03/02/19 12:22 Dose: 100 mls/hr Potassium Chloride 10 meq/ (Premix) 100 mls @ 100 mls/hr IV Q1H [facility] Stop: 03/03/19 12:29 Last Admin: 03/03/19 12:12 Dose: 100 mls/hr Dextrose/Sodium Chloride (Dextrose 5%-1/2 Ns) 1,000 mls @ 100 mls/hr IV ASDIRECTED [facility] Last Admin: 03/03/19 09:21 Dose: 100 mls/hr Potassium Chloride 10 meq/ (Premix) 100 mls @ 100 mls/hr IV Q1H [facility] Stop: 03/04/19 15:14 Last Admin: 03/04/19 09:41 Dose: Not Given Magnesium Sulfate 2 gm/ Premix 50 mls @ 25 mls/hr IV ONETIME ONE Stop: 03/04/19 11:14 Last Admin: 03/04/19 09:41 Dose: Not Given Iopamidol (Isovue-300 (61%)) 100 ml IVPUSH ONETIME ONE Stop: 02/27/19 22:58 Last Admin: 02/28/19 00:04 Dose: 100 ml Iopamidol (Isovue-300 (61%)) 100 ml IVPUSH ONETIME ONE Stop: 02/27/19 23:59 Last Admin: 02/28/19 09:25 Dose: Not Given Magnesium Oxide (Magnesium Oxide) 800 mg PO ONETIME ONE Stop: 03/04/19 09:36 Last Admin: 03/04/19 09:46 Dose: 800 mg Metoprolol Succinate (Toprol Xl) 50 mg PO BID [facility] Last Admin: 03/01/19 10:18 Dose: Not Given Ondansetron HCl (Zofran) 4 mg IVPUSH ONETIME ONE Stop: 02/27/19 22:11 Last Admin: 02/27/19 22:21 Dose: 4 mg Potassium Chloride (Klor-Con M20) 40 meq PO Q4H [facility] Stop: 03/04/19 13:46 - Exam General: Reports: Alert, Oriented HEENT: Reports: Pupils Equal Neck: Reports: Supple Lungs: Reports: Clear to Auscultation, Normal Respiratory Effort Cardiovascular: Reports: Regular Rhythm, Bradycardia GI/Abdominal Exam: Normal Bowel Sounds, Soft, Non-Tender, No Organomegaly, No Distention, No Abnormal Bruit, No Mass Wound/Incisions: Reports: Healing Well Neurological: Reports: No New Focal Deficit Psy/Mental Status: Reports: Alert, Normal Affect, Normal Mood
[2019-03-04] MEDS ORDERED: Amoxicillin/Clavulanate K 875-125 MG Tab PO SCH (17:00)
[2019-03-05] MEDS ORDERED: Amiodarone 200 MG Tab PO SCH ×2 (09:00)
== END 2019-03-04 14:05 | disposition home or self-care (01) | DRG 244 ==
LOC: JD.ED 21:37 → JD.MS 02-28 01:38
PROVIDERS: ADMIT Family Medicine; ATTEND Family Medicine
DX: K57.20 Diverticulitis of large intestine with perforation and abscess without bleeding (principal); I48.91 Unspecified atrial fibrillation; R00.1 Bradycardia, unspecified; I50.20 Unspecified systolic (congestive) heart failure; Z90.89 Acquired absence of other organs; Z90.49 Acquired absence of other specified parts of digestive tract; Z79.01 Long term (current) use of anticoagulants; Z79.899 Other long term (current) drug therapy; Z90.79 Acquired absence of other genital organ(s)
CPT/HCPCS: 36415; 51798; 74177; 74177-26; 80053; 81001; 83690; 83735; 85025; 87804; 96361; 96365; 96375; 96376; 99284; 99285-25; A9270-GY; C9113; J0696; J1170; J1650; J1885; J2405; J2543; J3475; J3480; J3490; J7030; J7040; J7042; Q9963; Q9967

== ENCOUNTER 2019-04-14 07:47 | Day surgery (SDC) | payer BC ==
[~2019-04-14 07:47] MED LIST: Lactated Ringers 1,000 ML IV SCH; Lidocaine 1%/Sod Bicarbonate in NS 8.4% 1 ML Syringe IDERM PRN; Sodium Chloride 0.9% 10 ML Syringe FLUSH PRN
--- NOTE | 2019-04-14 08:36 | PCM.PREANE ---
Preanesthetic Assessment - Anesthesia/Transfusion/Family Hx Anesthesia History: Prior Anesthesia Without Reaction Family History of Anesthesia Reaction: No Transfusion History: No Prior Transfusion(s) - Review of Systems General: No Symptoms, Other (obese) Pulmonary: No Symptoms Cardiovascular: Other (chronic systolic CHF, s/p cardioversion july 2018 for aflutter, stopped eliquis stopped 04/11/2019) Gastrointestinal: No Symptoms Neurological: No Symptoms Other: Reports: None - Physical Assessment NPO Status Date: 04/13/19 NPO Status Time: 22:30 Weight: 117 kg ASA Class: 3 Mental Status: Alert & Oriented x3 Airway Class: Mallampati = 2 Dentition: Reports: Normal Dentition Thyro-Mental Finger Breadths: 3 Mouth Opening Finger Breadths: 3 ROM/Head Extension: Full Lungs: Clear to Auscultation, Normal Respiratory Effort Cardiovascular: Regular Rate, Regular Rhythm - Imaging/EKG Impressions: EKG 09/13/18 SR with nonspecific t wave abnormalities EF 50-55 heartcath negative - Allergies Allergies/Adverse Reactions: Allergies Allergy/AdvReac Type Severity Reaction Status Date / Time No Known Allergies Allergy Verified 04/11/19 14:17 - Blood Blood Available: No Product(s) Available: None - Anesthesia Plan Pre-Op Medication Ordered: None Beta Wilma: Metoprolol Med Last Dose Date: 04/14/19 Med Last Dose Time: 06:50 - Acknowledgements Anesthesia Type Planned: MAC Pt an Appropriate Candidate for the Planned Anesthesia: Yes Alternatives and Risks of Anesthesia Discussed w Pt/Guardian: Yes Pt/Guardian Understands and Agrees with Anesthesia Plan: Yes PreAnesthesia Questionnaire HEENT History: Reports: Impaired Vision Other HEENT History: wears glasses Cardiovascular History: Reports: Afib, Cardiomyopathy, Heart Failure, Other ( See Below) Other Cardiovascular History: heart failure, afib, aflutter Respiratory History: Reports: None Gastrointestinal History: Reports: Diverticulosis, Other (See Below) Other Gastrointestinal History: hernia Genitourinary History: Reports: Prostate Disorder [employer] WORK[employer] History: Reports: None Musculoskeletal History: Reports: Other (See Below) Other Musculoskeletal History: left knee bone on bone Neurological History: Reports: Headaches, Chronic Psychiatric History: Reports: None Endocrine/Metabolic History: Reports: Obesity/BMI 30+ Hematologic History: Reports: None Immunologic History: Reports: None Oncologic (Cancer) History: Reports: Prostate Dermatologic History: Reports: Other (See Below) Other Dermatologic History: rash on LLQ for 5 years comes and goes - Infectious Disease History Infectious Disease History: Reports: Chicken Pox, Measles - Past Surgical History Head Surgeries/Procedures: Reports: None HEENT Surgical History: Reports: Tonsillectomy Cardiovascular Surgical History: Reports: None Respiratory Surgical History: Reports: None GI Surgical History: Reports: Appendectomy, Hernia Repair/Other Male Surgical History: Reports: Prostatectomy Endocrine Surgical History: Reports: None Neurological Surgical History: Reports: None Musculoskeletal Surgical History: Reports: None Oncologic Surgical History: Reports: None Dermatological Surgical History: Reports: None - SUBSTANCE USE Smoking Status *Q: Never Smoker Recreational Drug Use History: No - HOME MEDS Home Medications: Home Meds Apixaban [Eliquis] 5 mg PO BID 02/28/19 [History] Furosemide 20 mg PO DAILY 02/28/19 [History] Losartan [Cozaar] 25 mg PO DAILY 02/28/19 [History] Amiodarone [Cordarone] 100 mg PO DAILY 30 Days #15 tablet 03/04/19 [Rx] Metoprolol Succinate [Toprol XL 50mg] 50 mg PO BEDTIME #30 tab.er 03/04/19 [Rx] Acetaminophen/Caffeine [Excedrin Tension Headache Cplt] 1 - 2 tab PO Q6H PRN [History] Fexofenadine HCl [Kymberly Allergy] 60 mg PO DAILY 04/11/19 [History] Ibuprofen [Motrin] 600 mg PO Q4H PRN 04/11/19 [History] Loratadine [Claritin] 10 mg PO DAILY PRN 04/11/19 [History] - CURRENT (IN HOUSE) MEDS Current Meds: Current Medications Lactated Ringer's (Ringers, Lactated) 1,000 mls @ 125 mls/hr IV ASDIRECTED [facility] Stop: 04/14/19 23:00 Last Admin: 04/14/19 08:20 Dose: 125 mls/hr Lidocaine/Sodium Bicarbonate (Buffered Lidocaine 1% In Ns 8.4%) 0.25 ml IDERM ONETIME PRN PRN Reason: Prior to IV Start Stop: 04/14/19 18:00 Sodium Chloride (Saline Flush) 10 ml FLUSH ASDIRECTED PRN PRN Reason: Keep Vein Open Stop: 04/14/19 18:00
[2019-04-14] MEDS ORDERED: Lidocaine 1% 0 ML ONE (08:44)
[2019-04-14] MEDS ORDERED: Propofol 200 MG/20 ML SDV ONE ×2 (08:44→08:45)
[2019-04-14] MEDS ORDERED: Midazolam 1 MG/ML 2 ML SDV ONE (08:46)
--- NOTE | 2019-04-14 10:23 | PCM48HPAN ---
Post Anesthesia Note - EVALUATION WITHIN 48HRS OF ANESTHETIC Vital Signs in Normal Range: Yes Patient Participated in Evaluation: Yes Respiratory Function Stable: Yes Airway Patent: Yes Cardiovascular Function Stable: Yes Hydration Status Stable: Yes Pain Control Satisfactory: Yes Nausea and Vomiting Control Satisfactory: Yes Mental Status Recovered: Yes Vital Signs: Last Vital Signs Temp 37.1 C 04/14/19 08:00 Pulse 51 L 04/14/19 08:00 Resp 16 04/14/19 08:00 BP 132/87 04/14/19 08:00 Pulse Ox 97 04/14/19 08:00
--- NOTE | 2019-04-14 11:16 | PROC ---
DATE OF OPERATION: 04/14/2019 SURGEON: Brooklyn Light MD PREOPERATIVE DIAGNOSIS: Diverticulitis history. POSTOPERATIVE DIAGNOSIS: Diverticulosis. PROCEDURE: Colonoscopy. ANESTHESIA: Monitored anesthesia care. COMPLICATIONS: None. INDICATION AND CONSENT: The patient is a 58-year-old male who had a history of acute diverticulitis with focal perforation 2 months ago. This was managed nonoperatively with antibiotics. The patient did well and went home, and I recommended followup colonoscopy for which the patient presents today. Risks, benefits and alternatives were discussed with the patient and informed consent was obtained. DETAILS OF PROCEDURE: The patient was taken to the operating room, placed in left lateral decubitus position following induction of monitored anesthesia care. A time-out was performed and then the exam was began. We began with perianal exam which was normal. Digital rectal exam was also normal. The scope was placed and advanced all the way to the cecum. The ileocecal valve as well as appendiceal orifice were photographed. There were no lesions or polyps in the cecum. The scope was withdrawn slowly examining the entirety of the colonic wall. In the descending and sigmoid colon, there was significant amount of diverticulosis. This was from 45 cm to about 20 cm. There were no lesions or polyps. On retroflexion views, there were grade 2 hemorrhoids that were nonbleeding. The air was suctioned and the scope was withdrawn. This marked the end of the procedure. The patient was taken to the PACU for recovery in stable condition. The patient will continue to follow up with his primary care doctor for further care. I recommend repeat screening colonoscopy in 10 years. MMODAL /[id number] CHUCK
== END 2019-04-14 11:04 | disposition home or self-care (01) ==
LOC: JD.SDS 07:47
PROVIDERS: ATTEND Surgery
DX: K57.30 Diverticulosis of large intestine without perforation or abscess without bleeding (principal); K64.1 Second degree hemorrhoids; I48.0 Paroxysmal atrial fibrillation; I50.22 Chronic systolic (congestive) heart failure; J30.1 Allergic rhinitis due to pollen; E66.9 Obesity, unspecified; Z79.899 Other long term (current) drug therapy; Z79.01 Long term (current) use of anticoagulants; Z68.37 Body mass index [BMI] 37.0-37.9, adult
CPT/HCPCS: J2001; J2250; J2704; J7120